=== PATIENT | female | born 1985 | race Caucasian/White ===

== ENCOUNTER 2016-04-30 10:32 | Outpatient (CLI) | payer MEDICAID | END 2016-04-30 10:33 | disposition home or self-care (01) | DX: N64.9 Disorder of breast, unspecified (principal); N63 Unspecified lump in breast ==

== ENCOUNTER 2017-08-03 11:28 | Outpatient (CLI) | payer MEDICAID ==
[2017-08-03 17:49] LABS: BASOPHILS # (AUTO) 0.1 10^3/uL (0.0-0.1); BASOPHILS % (AUTO) 0.7 %; EOSINOPHILS # (AUTO) 0.3 10^3/uL (0.0-0.7); EOSINOPHILS % (AUTO) 3.7 %; HGB - HEMOGLOBIN 12.3 g/dL (12.0-16.0); LYMPHOCYTES # (AUTO) 2.4 10^3/uL (1.5-3.5); LYMPHOCYTES % (AUTO) 29.2 %; MEAN CORPUSCULAR HEMOGLOBIN 29.5 pg (27.0-31.0); MEAN CORPUSCULAR HGB CONC 33.3 g/dL (32.0-36.0); MEAN CORPUSCULAR VOLUME 88.6 fL (81.0-99.0); MEAN PLATELET VOLUME 8.3 fL (7.9-10.8); MONOCYTES # (AUTO) 0.4 10^3/uL (0.0-1.0); NEUTROPHILS % (AUTO) 61.4 %; PLT - PLATELET COUNT 304 10^3/uL (130-450); RED BLOOD COUNT 4.16 10^6/uL (4.20-5.40); RED CELL DISTRIBUTION WIDTH 13.9 % (12.0-15.0); WHITE BLOOD COUNT 8.1 x10^3/uL (4.8-10.8)
[2017-08-03 18:54] LABS: ALBUMIN 4.8 g/dL (3.2-5.5); ALBUMIN/GLOBULIN RATIO 1.4 (1.0-2.2); ALKALINE PHOSPHATASE 49 IU/L (42-121); ALT ALANINE AMINOTRANSFERASE 14 IU/L (10-60); AST ASPARTATE AMINOTRANSFERASE 17 IU/L (10-42); BILIRUBIN,TOTAL 0.7 mg/dL (0.2-1.0); BUN - BLOOD UREA NITROGEN 10 mg/dL (6-20); CALCIUM 9.6 mg/dL (8.5-10.3); CARBON DIOXIDE - CO2 25 mmol/L (21-32); CHLORIDE 103 mmol/L (101-111); CHOL/HDL RATIO 4.1 (<4.4); CHOLESTEROL 227 mg/dL; CREATININE 0.6 mg/dL (0.4-1.0); GFR - MDRD 116 (>89); GLUCOSE 86 mg/dL (70-100); HDL CHOLESTEROL 55 mg/dL; LDL CHOLESTEROL,CALCULATED 160 mg/dL; LDL/HDL RATIO 2.9 (<4.4); SODIUM 136 mmol/L (135-145); TOTAL PROTEIN 8.3 g/dL (6.7-8.2); VLDL CHOLESTEROL 12 mg/dL
== END 2017-08-03 11:29 | disposition home or self-care (01) ==
LOC: LAB.F 11:28
PROVIDERS: ATTEND Physician Assistant Medical
DX: Z00.00 Encounter for general adult medical examination without abnormal findings (principal); Z51.81 Encounter for therapeutic drug level monitoring; Z79.899 Other long term (current) drug therapy
CPT/HCPCS: 36415; 80053; 80061; 83721; 84443; 85025

== ENCOUNTER 2018-01-25 10:11 | Emergency (ER) | payer MEDICAID ==
[2018-01-25 11:02] LABS: BASOPHILS % (AUTO) 0.3 %; HGB - HEMOGLOBIN 12.7 g/dL (12.0-16.0); LYMPHOCYTES # (AUTO) 1.7 10^3/uL (1.5-3.5); LYMPHOCYTES % (AUTO) 13.9 %; MEAN CORPUSCULAR HEMOGLOBIN 30.2 pg (27.0-31.0); MEAN CORPUSCULAR HGB CONC 34.6 g/dL (32.0-36.0); MEAN CORPUSCULAR VOLUME 87.3 fL (81.0-99.0); MEAN PLATELET VOLUME 7.4 fL (7.9-10.8); MONOCYTES # (AUTO) 0.9 10^3/uL (0.0-1.0); MONOCYTES % (AUTO) 7.2 %; NEUTROPHILS # (AUTO) 9.7 10^3/uL (1.5-6.6); NEUTROPHILS % (AUTO) 78.6 %; PLT - PLATELET COUNT 323 10^3/uL (130-450); RED BLOOD COUNT 4.19 10^6/uL (4.20-5.40); RED CELL DISTRIBUTION WIDTH 13.8 % (12.0-15.0); WHITE BLOOD COUNT 12.3 x10^3/uL (4.8-10.8)
[2018-01-25 11:16] LABS: ALBUMIN 5.3 g/dL (3.2-5.5); ALBUMIN/GLOBULIN RATIO 1.4 (1.0-2.2); BILIRUBIN,TOTAL 0.7 mg/dL (0.2-1.0); CALCIUM 9.5 mg/dL (8.5-10.3); CREATININE 0.8 mg/dL (0.4-1.0); TOTAL PROTEIN 9.2 g/dL (6.7-8.2)
[2018-01-25 12:05] LABS: BILIRUBIN,URINE NEGATIVE (NEGATIVE); GLUCOSE, URINE (UA) NEGATIVE (NEGATIVE); KETONES,URINE (UA) NEGATIVE (NEGATIVE); LEUKOCYTE ESTERASE, URINE NEGATIVE (NEGATIVE); NITRITE,URINE NEGATIVE (NEGATIVE); OCCULT BLOOD,URINE MODERATE (NEGATIVE); PROTEIN,URINE 100 mg/dL (NEGATIVE); UROBILINOGEN,URINE 0.2 (NORMAL) E.U./dL (NORMAL)
[2018-01-25] MEDS ORDERED: PANTOPRAZOLE 40 MG VIAL IVP STA (12:07)
[2018-01-25] MEDS ORDERED: ONDANSETRON 4 MG/2 ML VIAL IVP STA (12:07)
[2018-01-25] MEDS ORDERED: SODIUM CHLORIDE 0.9% 1,000 ML IV ONE ×2 (12:07)
[2018-01-25 12:13] LABS: CLARITY,URINE HAZY (CLEAR); HCG UR QUAL NEGATIVE
--- NOTE | 2018-01-25 12:19 | ED Physician Documentation ---
History of Present Illness - Stated complaint Stated Complaint: VOMITTING BLOOD - Chief complaint Chief Complaint: Abd Pain - History obtained from History obtained from: Patient - History of Present Illness Timing: How many days ago (2) Pain level max: 5 Pain level now: 3 Improved by: nothing Worsened by: eating - Additonal information Additional information: Patient is a 33-year-old female who states she has been vomiting for the last 2 days approximately every hour. She does use marijuana daily. Is not on any other medications at home. Has been trying [id number] nausea medications without relief. Saw her PCP who sent her here today for evaluation. She states that she had a small amount of blood in the last couple times she vomited. No history of ulcers. States rarely uses alcohol. Has not had any diarrhea. No fevers. No recent travel. Denies any possibility of . Review of Systems Ten Systems: 10 systems reviewed and negative Constitutional: denies: Fever, Chills Ears: denies: Ear pain Nose: denies: Rhinorrhea / runny nose, Congestion Throat: denies: Sore throat Cardiac: denies: Chest pain / pressure Respiratory: denies: Cough GI: reports: Nausea, Vomiting. 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 - Present Medications Home Medications: Ambulatory Orders Medication Instructions Recorded Confirmed Aripiprazole [Abilify] 0 tab PO DAILY 01/25/18 01/25/18 FLUoxetine [PROzac] 0 tab PO DAILY 01/25/18 01/25/18 Ondansetron Odt [Zofran] 4 mg TL Q6H PRN #10 tablet 01/25/18 Promethazine Supp [Phenergan Supp] 25 mg WA Q6H PRN #10 supp 01/25/18 - Allergies Allergies/Adverse Reactions: Allergies Allergy/AdvReac Type Severity Reaction Status Date / Time No Known Drug Allergies Allergy Verified 01/25/18 10:38 - Living Situation Living Situation: reports: With family Living Arrangement: reports: At home - Social History Does the pt smoke?: No Smoking Status: Never smoker Does the pt drink ETOH?: No Does the pt have substance abuse?: Yes Substance Use and Type: Marijuana - Immunizations Immunizations are current?: Yes - POLST Patient has POLST: No PD ED PE NORMAL - Vitals Vital signs reviewed: Yes - General General: Alert and oriented X 3, No acute distress, Well developed/nourished - HEENT HEENT: PERRL, Other (Dry lips) - Neck Neck: Supple, no meningeal sign - Cardiac Cardiac: RRR, Strong equal pulses - Respiratory Respiratory: No respiratory distress, Clear bilaterally - Abdomen Abdomen: Normal bowel sounds, Soft, Non tender, Non distended - Derm Derm: Warm and dry, No rash - Extremities Extremities: No edema, No calf tenderness / cord - Neuro Neuro: Alert and oriented X 3 - Psych Psych: Normal mood, Normal affect Results - Vitals Vitals: Vital Signs - 24 hr 01/25/18 01/25/18 10:37 15:49 Temperature 36.8 C 36.2 C L Heart Rate 59 L 73 Respiratory 18 20 Rate Blood Pressure 115/75 120/71 O2 Saturation 99 96 Oxygen O2 Source Room air - Labs Labs: Laboratory Tests 01/25/18 01/25/18 01/25/18 10:41 10:55 10:55 WBC 12.3 H RBC 4.19 L Hgb 12.7 Hct 36.6 L MCV 87.3 MCH 30.2 MCHC 34.6 RDW 13.8 Plt Count 323 MPV 7.4 L Neut # (Auto) 9.7 H Lymph # (Auto) 1.7 [place] # (Auto) 0.9 Eos # (Auto) 0.0 Baso # (Auto) 0.0 Absolute Nucleated RBC 0.01 Nucleated RBC % 0.1 Sodium 137 Potassium 2.7 L Chloride 92 L Carbon Dioxide 31 Anion Gap 14.0 H BUN 22 H Creatinine 0.8 Estimated GFR (MDRD) 83 L Glucose 119 H Calcium 9.5 Total Bilirubin 0.7 AST 22 ALT 24 Alkaline Phosphatase 64 Total Protein 9.2 H Albumin 5.3 Globulin 3.8 Albumin/Globulin Ratio 1.4 Lipase 26 Urine Color RED/BLOODY Urine Clarity HAZY Urine pH 7.0 Ur Specific [place] 1.020 Urine Protein 100 H Urine Glucose (UA) NEGATIVE Urine Ketones NEGATIVE Urine Occult Blood MODERATE H Urine Nitrite NEGATIVE Urine Bilirubin NEGATIVE Urine Urobilinogen 0.2 (NORMAL) Ur Leukocyte Esterase NEGATIVE Urine RBC 6-10 H Urine WBC 0-3 Ur Squamous Epith Cells MOD Squamous H Urine Bacteria Moderate H Ur Microscopic Review INDICATED Urine Culture Comments NOT INDICATED Urine HCG, Qual NEGATIVE PD MEDICAL DECISION MAKING - ED course Complexity details: reviewed results, re-evaluated patient, considered differential, d/w patient ED course: Patient is a 33-year-old female who presents to the emergency department vomiting for the past 2 days. She is administered IV fluids, Zofran, phenergan. Feels better. Did have slight hematemesis, likely from the repeated vomiting. Also given IV Protonix. She is well-appearing, nontoxic. Afebrile. We will continue supportive care and follow-up with her doctor. Patient counseled regarding signs and symptoms for which I believe and urgent re-evaluation would be necessary. Patient with good understanding of and agreement to plan and is comfortable going home at this time This document was made in part using voice recognition software. While efforts are made to proofread this document, sound alike and grammatical errors may occur. Departure - Departure Disposition: 01 Home, Self Care Clinical Impression: Vomiting Qualifiers: Vomiting type: unspecified Vomiting Intractability: non-intractable Nausea presence: with nausea Qualified Code(s): R11.2 - Nausea with vomiting, unspecified Hematemesis Qualifiers: Nausea presence: with nausea Qualified Code(s): K92.0 - Hematemesis Condition: Good Instructions: ED Bleed UGI Stable, ED Nausea Vomiting Follow-Up: Marge Dyer PA-C [Primary Care Provider] - Within 1 week Prescriptions: Ondansetron Odt [Zofran] 4 mg TL Q6H PRN #10 tablet PRN Reason: Nausea / Vomiting Promethazine Supp [Phenergan Supp] 25 mg WA Q6H PRN #10 supp PRN Reason: nausea Comments: Go home and rest. Return if you worsen. Drink plenty of fluids at home. Follow up with your doctor within 1 week for further care. Discharge Date/Time: 01/25/18 15:52
[2018-01-25 12:27] LABS: BACTERIA,URINE Moderate /HPF (None Seen); SQUAMOUS EPITHELIAL CELL,UR MOD Squamous (<= Few)
[2018-01-25] MEDS ORDERED: POTASSIUM BICARB 25 MEQ TABLET PO STA (14:05)
[2018-01-25] MEDS ORDERED: PROMETHAZINE INJ 25 MG in SODIUM CHLORIDE 0.9% 50 ML IV STA (14:16)
[2018-01-25 15:50] VITALS: BP 120/71
== END 2018-01-25 15:52 | disposition home or self-care (01) ==
LOC: ED 10:11
DX: K92.0 Hematemesis (principal)
CPT/HCPCS: 36415; 80053; 81001; 81025; 83690; 85025; 96361; 96365; 96375; 99283; A9270; J7040; 81003; 87086

== ENCOUNTER 2018-01-29 08:00 | Outpatient (CLI) | payer MEDICAID ==
[2018-01-29 18:35] LABS: H. PYLORIS ANTIGEN STL NEGATIVE (Negative)
== END 2018-01-29 23:59 | disposition home or self-care (01) ==
LOC: LAB.R 08:00
PROVIDERS: ATTEND Registered Nurse
DX: K92.0 Hematemesis (principal)
CPT/HCPCS: 87338

== ENCOUNTER 2018-07-21 21:48 | Emergency (ER) | payer MEDICAID ==
[2018-07-21] MEDS ORDERED: SODIUM CHLORIDE 0.9% 1,000 ML IV STA (21:56)
[2018-07-21 22:10] LABS: BASOPHILS % (AUTO) 0.3 %; EOSINOPHILS % (AUTO) 0.2 %; HGB - HEMOGLOBIN 12.5 g/dL (12.0-16.0); LYMPHOCYTES # (AUTO) 1.4 10^3/uL (1.5-3.5); MEAN CORPUSCULAR HEMOGLOBIN 29.6 pg (27.0-31.0); MEAN CORPUSCULAR VOLUME 86.9 fL (81.0-99.0); MEAN PLATELET VOLUME 7.5 fL (7.9-10.8); MONOCYTES # (AUTO) 0.4 10^3/uL (0.0-1.0); MONOCYTES % (AUTO) 2.6 %; NEUTROPHILS # (AUTO) 13.6 10^3/uL (1.5-6.6); NEUTROPHILS % (AUTO) 87.9 %; PLT - PLATELET COUNT 331 10^3/uL (130-450); RED BLOOD COUNT 4.23 10^6/uL (4.20-5.40); RED CELL DISTRIBUTION WIDTH 13.6 % (12.0-15.0); WHITE BLOOD COUNT 15.5 x10^3/uL (4.8-10.8)
[2018-07-21] MEDS ORDERED: HYDROmorphone 1 MG/ML CARPUJECT IVP STA (22:10)
[2018-07-21] MEDS ORDERED: KETOROLAC 30 MG/ML VIAL IVP STA (22:10)
[2018-07-21] MEDS ORDERED: PROMETHAZINE INJ 25 MG in SODIUM CHLORIDE 0.9% 50 ML IV STA (22:10)
[2018-07-21 22:21] LABS: ALBUMIN/GLOBULIN RATIO 1.4 (1.0-2.2); BILIRUBIN,TOTAL 0.5 mg/dL (0.2-1.0); CALCIUM 9.8 mg/dL (8.5-10.3); CREATININE 0.7 mg/dL (0.4-1.0); TOTAL PROTEIN 8.6 g/dL (6.7-8.2)
--- NOTE | 2018-07-21 22:47 | ED Physician Documentation ---
History of Present Illness - Stated complaint Stated Complaint: FEMALE - Chief complaint Chief Complaint: Abd Pain - History obtained from History obtained from: Patient - History of Present Illness Timing: Yesterday Pain level max: 10 Pain level now: 10 - Additonal information Additional information: 33-year-old female presents to the emergency department with right flank pain and hematuria. Started yesterday and worsened today. Has had kidney stones in the past, but states that this feels different. No fevers. No dysuria. No vaginal bleeding or discharge. She has had vomiting as well. She states that this is normal when she is in significant pain. Nothing makes it better or worse. Review of Systems Ten Systems: 10 systems reviewed and negative Constitutional: denies: Fever, Chills Ears: denies: Ear pain Nose: denies: Rhinorrhea / runny nose, Congestion Respiratory: denies: Cough : reports: Hematuria. 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 - Present Medications Home Medications: Ambulatory Orders Medication Instructions Recorded Confirmed Aripiprazole [Abilify] 0 tab PO DAILY 01/25/18 01/25/18 FLUoxetine [PROzac] 0 tab PO DAILY 01/25/18 01/25/18 Ondansetron Odt [Zofran] 4 mg TL Q6H PRN #10 tablet 01/25/18 Promethazine Supp [Phenergan Supp] 25 mg NE Q6H PRN #10 supp 01/25/18 Cefdinir 300 mg PO BID #20 capsule 07/22/18 Oxycodone HCl/Acetaminophen 1 - 2 each PO Q6H PRN #14 tablet 07/22/18 [Percocet 5-325 mg Tablet] Promethazine Supp [Phenergan Supp] 25 mg NE Q6HR PRN #10 supp 07/22/18 Promethazine [Phenergan] 25 mg PO Q6H PRN #10 tab 07/22/18 - Allergies Allergies/Adverse Reactions: Allergies Allergy/AdvReac Type Severity Reaction Status Date / Time No Known Drug Allergies Allergy Verified 07/21/18 21:59 - Social History Does the pt smoke?: No Smoking Status: Never smoker Does the pt drink ETOH?: No Does the pt have substance abuse?: No Substance Use and Type: Marijuana - Immunizations Immunizations are current?: Yes - POLST Patient has POLST: No PD ED PE NORMAL - Vitals Vital signs reviewed: Yes - General General: Alert and oriented X 3, No acute distress - HEENT HEENT: Moist mucous membranes - Neck Neck: Supple, no meningeal sign - Cardiac Cardiac: RRR - Respiratory Respiratory: No respiratory distress, Clear bilaterally - Abdomen Abdomen: Soft, Non distended, Other (TTP RLQ without peritoneal signs) - Back Back: No CVA TTP, No spinal TTP - Derm Derm: Warm and dry - Extremities Extremities: No edema - Neuro Neuro: Alert and oriented X 3 - Psych Psych: Normal mood, Normal affect Results - Vitals Vitals: Vital Signs - 24 hr 07/21/18 07/21/18 07/21/18 21:57 22:36 23:59 Temperature 36.4 C L 36.6 C Heart Rate 69 75 Respiratory 18 16 16 Rate Blood Pressure 114/75 112/77 O2 Saturation 100 96 07/22/18 02:04 Temperature 36.4 C L Heart Rate 93 Respiratory 14 Rate Blood Pressure 116/81 H O2 Saturation 96 Oxygen O2 Source Room air - Labs Labs: Laboratory Tests 07/21/18 07/21/18 07/21/18 22:00 22:00 22:40 WBC 15.5 H RBC 4.23 Hgb 12.5 Hct 36.8 L MCV 86.9 MCH 29.6 MCHC 34.0 RDW 13.6 Plt Count 331 MPV 7.5 L Neut # (Auto) 13.6 H Lymph # (Auto) 1.4 L [place] # (Auto) 0.4 Eos # (Auto) 0.0 Baso # (Auto) 0.0 Absolute Nucleated RBC 0.01 Nucleated RBC % 0.1 Sodium 139 Potassium 3.8 Chloride 102 Carbon Dioxide 23 Anion Gap 14.0 H BUN 19 Creatinine 0.7 Estimated GFR (MDRD) 96 Glucose 160 H Calcium 9.8 Total Bilirubin 0.5 AST 18 ALT 23 Alkaline Phosphatase 61 Total Protein 8.6 H Albumin 5.0 Globulin 3.6 Albumin/Globulin Ratio 1.4 Lipase 26 Urine Color BROWN Urine Clarity CLOUDY Urine pH 6.5 Ur Specific [place] >=1.030 H Urine Protein >=300 H Urine Glucose (UA) NEGATIVE Urine Ketones 15 H Urine Occult Blood LARGE H Urine Nitrite POSITIVE H Urine Bilirubin NEGATIVE Urine Urobilinogen 1 (NORMAL) Ur Leukocyte Esterase TRACE H Urine RBC TNTC H Urine WBC 4-5 Ur Squamous Epith Cells NONE SEEN Urine Bacteria Few Ur Microscopic Review INDICATED Urine Culture Comments INDICATED Urine HCG, Qual NEGATIVE - Rads (name of study) CT abd/pelvis Radiology: Prelim report reviewed, EMP read contemporaneously, See rad report (6 x 5 mm stone at the ureteropelvic junction) PD MEDICAL DECISION MAKING - ED course Complexity details: reviewed results, re-evaluated patient, considered differential, d/w patient, d/w family, d/w [employer] consultant (Dr. Hagan ([facility]rology [facility] [place]) and recommends rocephin and close follow up. ) ED course: 33-year-old female with a right sided kidney stone. 6 x 5 mm. Given Dilaudid, Toradol, normal saline and pain much improved. No longer vomiting. Also given Phenergan for the vomiting. Appears to have a UTI with this, given Rocephin. Call placed to urology at 2330. She lives in [place] and prefers [place] to be contacted first. D/w Dr. Hagan 0030, urology, who recommends follow up with him in clinic in 1-[address] on abx. Alternatively can observe here at [facility] for fevers and pain control overnight, repeat WBC in the am and if she worsens then can be transferred. 0130 Pain returning and nausea. D/w Dr. Neil, hospitalist here, who refuses admission here because the patient may get sicker and need transfer anyway. We went over the phone call with urology and offered to him to have him speak with urology himself, but he still refuses this patient. Will recontact [facility] in [place] to see if she can be transferred. Pain was well controlled by . As she is not going to be able to be admitted here, she does not want to be transferred and would like to go home at this time instead. Will prescribe medications for home and follow-up with triny ortiz today or tomorrow. Patient counseled regarding signs and symptoms for which I believe and urgent re-evaluation would be necessary. Patient with good understanding of and agreement to plan and is comfortable going home at this time This document was made in part using voice recognition software. While efforts are made to proofread this document, sound alike and grammatical errors may occur. Departure - Departure Disposition: 01 Home, Self Care Clinical Impression: Ureteral stone UTI (urinary tract infection) Qualifiers: Urinary tract infection type: site unspecified Hematuria presence: with hematuria Qualified Code(s): N39.0 - Urinary tract infection, site not specified Condition: Stable Instructions: ED UTI Cystitis Female, ED Stone Renal W Colic Follow-Up: Mary Hagan MD [Physician No Access] - Tomorrow Prescriptions: Promethazine Supp [Phenergan Supp] 25 mg NE Q6HR PRN #10 supp PRN Reason: vomiting Cefdinir 300 mg PO BID #20 capsule Oxycodone HCl/Acetaminophen [Percocet 5-325 mg Tablet] 1 - 2 each PO Q6H PRN #14 tablet PRN Reason: pain Promethazine [Phenergan] 25 mg PO Q6H PRN #10 tab PRN Reason: Nausea / Vomiting Comments: Use the medications as prescribed. Make sure you start the antibiotics tomorrow morning. Return immediately for uncontrolled pain, persistent vomiting or fevers. Follow-up with urology either tomorrow or the next day. Call the office in the morning. I did speak with Dr. Danya salvador. Do not drink alcohol or drive while on narcotic pain medicine. Note that many narcotic pain relievers also contain tylenol/acetaminophen. Please ensure that your total dose of acetaminophen from all sources does not exceed 3 grams (3000mg) per day. You may constipated on this medication, take a stool softener such as "Colace" twice a day while you are on it. Also recommend a [id number] laxative such as senna or MiraLAX any day that you do not have a bowel movement. If you received narcotic pain medication in the emergency department, do not drive or operate machinery for the next 24 hours. Discharge Date/Time: 07/22/18 02:46
[2018-07-21 22:48] LABS: GLUCOSE, URINE (UA) NEGATIVE (NEGATIVE); KETONES,URINE (UA) 15 mg/dL (NEGATIVE); LEUKOCYTE ESTERASE, URINE TRACE (NEGATIVE); NITRITE,URINE POSITIVE (NEGATIVE); OCCULT BLOOD,URINE LARGE (NEGATIVE); PH,URINE 6.5 PH (5.0-7.5); PROTEIN,URINE >=300 mg/dL (NEGATIVE); UROBILINOGEN,URINE 1 (NORMAL) E.U./dL (NORMAL)
[2018-07-21 22:53] LABS: BILIRUBIN,URINE NEGATIVE (NEGATIVE); CLARITY,URINE CLOUDY (CLEAR); HCG UR QUAL NEGATIVE; ICTOTEST,URINE NEGATIVE
[2018-07-21 22:56] LABS: BACTERIA,URINE Few /HPF (None Seen); RBC,URINE TNTC /HPF (0-5); SQUAMOUS EPITHELIAL CELL,UR NONE SEEN (<= Few)
[2018-07-21] MEDS ORDERED: cefTRIAXone 1 GM VIAL IVP STA (23:15)
--- NOTE | 2018-07-21 23:26 | CT Report ---
Reason: R flank pain, hematuria Procedure Date: 07/21/2018 Accession Number: [id number] / [id number] Procedure: CT - Abdomen/Pelvis WO CPT Code: FULL RESULT: EXAM: CT ABDOMEN AND PELVIS (CT KUB) EXAM DATE: 07/21/2018 11:10 PM. CLINICAL HISTORY: R flank pain, hematuria. COMPARISONS: ABD/PEL 05/14/2010 2:31 AM. TECHNIQUE: Routine axial helical CT imaging was performed through the abdomen and pelvis without IV contrast. Reconstructions: Coronal and sagittal. In accordance with CT protocol optimization, one or more of the following dose reduction techniques were utilized for this exam: automated exposure control, adjustment of mA and/or KV based on patient size, or use of iterative reconstructive technique. FINDINGS: Lung Bases: No focal consolidation. Small hiatal hernia. Right Kidney/Ureter: At least one nonobstructing stone is seen in the kidney measuring 3 mm. Moderately obstructing stone at the ureteropelvic junction measuring 6 x 5 mm. Cyst measuring 1.6 cm. Left Kidney/Ureter: Nonobstructing renal stone measuring 4 x 3 mm. Cyst measuring 2.1 cm. No ureteral stone or obstructive uropathy seen. Other Solid Organs: Noncontrast images of the solid organs are grossly unremarkable. Gallbladder/Bile Ducts: Unremarkable. Peritoneal Cavity: No bowel obstruction seen. No free air or free fluid. No diverticulitis. No lymphadenopathy. Appendix appears normal. Pelvic Organs: No bladder stones or wall thickening. Noncontrast images of the visualized pelvic organs are unremarkable. Vasculature: Unremarkable. Other: None. IMPRESSION: 1. Moderately obstructing 6 x 5 mm stone at the right ureteropelvic junction. 2. Small nonobstructing stone in each kidney. 3. Small hiatal hernia. RADIA
[2018-07-22] MEDS ORDERED: ONDANSETRON 4 MG/2 ML VIAL IVP STA (00:37)
[2018-07-22] MEDS ORDERED: PROMETHAZINE INJ 25 MG in SODIUM CHLORIDE 0.9% 50 ML IV STA (01:00)
[2018-07-22] MEDS ORDERED: HYDROmorphone 1 MG/ML CARPUJECT IVP STA (01:25)
[2018-07-22] MEDS ORDERED: LIDOCAINE-MPF 2% 7 ML in SODIUM CHLORIDE 0.9% 50 ML IV STA (01:25)
[2018-07-22 02:05] VITALS: BP 116/81
[2018-07-22] MEDS ORDERED: oxyCODONE/ACET 5/325 Prepack 4 PO STA (02:28)
== END 2018-07-22 02:46 | disposition home or self-care (01) ==
LOC: ED 21:48
DX: N20.1 Calculus of ureter (principal); N39.0 Urinary tract infection, site not specified
CPT/HCPCS: 36415; 74176; 80053; 81001; 81025; 83690; 85025; 87086; 96361; 96365; 96375; 96376; 99284; J1170; J7040; 81003

== ENCOUNTER 2018-11-28 14:11 | Emergency (ER) | payer MEDICAID ==
[2018-11-28] MEDS ORDERED: SODIUM CHLORIDE 0.9% 1,000 ML IV ONE ×2 (14:19→16:17)
[2018-11-28] MEDS ORDERED: LIDOCAINE-MPF 2% 7 ML in SODIUM CHLORIDE 0.9% 50 ML IV STA (14:24)
[2018-11-28] MEDS ORDERED: HYDROmorphone 1 MG/ML CARPUJECT IVP STA (14:24)
[2018-11-28] MEDS ORDERED: KETOROLAC 30 MG/ML VIAL IVP STA (14:24)
--- NOTE | 2018-11-28 14:27 | ED Physician Documentation ---
History of Present Illness - Stated complaint Stated Complaint: N/V DIZZY TINGELING HANDS & FEET - Chief complaint Chief Complaint: Abd Pain - History obtained from History obtained from: Patient, Family - History of Present Illness Timing: How many days ago (3) Pain level max: 10 Pain level now: 10 Improved by: nothing Worsened by: nothing - Additonal information Additional information: Patient with a long history of ureteral stones. States she started having pain and vomiting on Thursday. Was seen at [facility] in [place] and diagnosed with 2 kidney stones. She states that she passed one. She states that there is still a 3 mm ure[address] stone in place. Pain increasing today. Vomiting today so unable to tolerate her pain medication. She took Zofran and Phenergan without relief. She sees urology at [facility]. Review of Systems Ten Systems: 10 systems reviewed and negative Constitutional: denies: Fever, Chills Nose: denies: Rhinorrhea / runny nose, Congestion Respiratory: denies: Cough GI: reports: Vomiting. 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 - Present Medications Home Medications: Ambulatory Orders Medication Instructions Recorded Confirmed Aripiprazole [Abilify] 0 tab PO DAILY 01/25/18 01/25/18 FLUoxetine [PROzac] 0 tab PO DAILY 01/25/18 01/25/18 Ondansetron Odt [Zofran] 4 mg TL Q6H PRN #10 tablet 01/25/18 Cefdinir 300 mg PO BID #20 capsule 07/22/18 Oxycodone HCl/Acetaminophen 1 - 2 each PO Q6H PRN #14 tablet 07/22/18 [Percocet 5-325 mg Tablet] Cephalexin [Keflex] 11/28/18 Tamsulosin HCl [Flomax] 11/28/18 - Allergies Allergies/Adverse Reactions: Allergies Allergy/AdvReac Type Severity Reaction Status Date / Time No Known Drug Allergies Allergy Verified 07/21/18 21:59 - Social History Does the pt smoke?: No Smoking Status: Never smoker Does the pt drink ETOH?: No Does the pt have substance abuse?: No - Immunizations Immunizations are current?: Yes - POLST Patient has POLST: No PD ED PE NORMAL - Vitals Vital signs reviewed: Yes - General General: Alert and oriented X 3, No acute distress, Well developed/nourished - HEENT HEENT: PERRL - Neck Neck: Supple, no meningeal sign - Cardiac Cardiac: RRR - Respiratory Respiratory: No respiratory distress, Clear bilaterally - Abdomen Abdomen: Soft, Non tender, Non distended - Back Back: No CVA TTP - Derm Derm: Warm and dry - Extremities Extremities: No edema - Neuro Neuro: Alert and oriented X 3 - Psych Psych: Normal mood, Normal affect Results - Vitals Vitals: Vital Signs - 24 hr 11/28/18 11/28/18 11/28/18 14:16 14:46 15:45 Temperature 36.9 C Heart Rate 97 85 74 Respiratory 18 18 18 Rate Blood Pressure 123/92 H 121/70 98/85 H O2 Saturation 100 96 96 11/28/18 11/28/18 11/28/18 16:03 16:10 16:12 Temperature 37.4 C Heart Rate 83 Respiratory 16 Rate Blood Pressure 105/82 H O2 Saturation 95 85 L 95 11/28/18 11/28/18 11/28/18 16:26 17:00 17:28 Temperature 36.8 C Heart Rate 64 62 74 Respiratory 18 18 20 Rate Blood Pressure 105/82 H 112/67 114/81 H O2 Saturation 96 97 98 11/28/18 11/28/18 11/28/18 17:48 18:16 19:00 Temperature 38.0 C H Heart Rate 81 73 77 Respiratory 20 18 18 Rate Blood Pressure 132/81 H 124/86 H 110/66 O2 Saturation 99 2 L 95 11/28/18 11/28/18 21:05 21:37 Temperature Heart Rate 71 100 Respiratory 17 17 Rate Blood Pressure 101/69 122/64 O2 Saturation 99 100 Oxygen O2 Source Room air - Labs Labs: Laboratory Tests 11/28/18 11/28/18 11/28/18 14:27 14:27 15:30 WBC 15.6 H RBC 4.53 Hgb 13.1 Hct 40.0 MCV 88.3 MCH 28.9 MCHC 32.8 RDW 13.2 Plt Count 351 MPV 9.4 Neut # (Auto) 12.7 H Lymph # (Auto) 1.7 Clay # (Auto) 1.0 Eos # (Auto) 0.0 Baso # (Auto) 0.0 Absolute Nucleated RBC 0.00 Nucleated RBC % 0.0 Sodium 138 Potassium 2.6 L Chloride 88 L Carbon Dioxide 32 Anion Gap 18.0 H BUN 19 Creatinine 0.8 Estimated GFR (MDRD) 83 L Glucose 129 H Lactic Acid Calcium 9.6 Total Bilirubin 0.8 AST 22 ALT 19 Alkaline Phosphatase 65 Total Protein 9.7 H Albumin 5.1 Globulin 4.6 H Albumin/Globulin Ratio 1.1 Lipase 36 Urine Color YELLOW Urine Clarity HAZY Urine pH 8.5 H Ur Specific [place] 1.015 Urine Protein >=300 H Urine Glucose (UA) NEGATIVE Urine Ketones 15 H Urine Occult Blood MODERATE H Urine Nitrite NEGATIVE Urine Bilirubin NEGATIVE Urine Urobilinogen 1 (NORMAL) Ur Leukocyte Esterase TRACE H Urine RBC 11-25 H Urine WBC 6-10 H Ur Squamous Epith Cells MANY Squamous H Urine Bacteria Many H Urine Mucus Marked Strands Ur Microscopic Review INDICATED Urine Culture Comments NOT INDICATED Urine Opiates Screen Ur Oxycodone Screen Urine Methadone Screen Ur Propoxyphene Screen Ur Barbiturates Screen Ur Tricyclics Screen Ur Phencyclidine Scrn Ur Amphetamine Screen U Methamphetamines Scrn U Benzodiazepines Scrn Urine Cocaine Screen U Cannabinoids Screen 11/28/18 11/28/18 11/28/18 17:40 17:40 19:40 WBC RBC Hgb Hct MCV MCH MCHC RDW Plt Count MPV Neut # (Auto) Lymph # (Auto) Clay # (Auto) Eos # (Auto) Baso # (Auto) Absolute Nucleated RBC Nucleated RBC % Sodium Potassium Chloride Carbon Dioxide Anion Gap BUN Creatinine Estimated GFR (MDRD) Glucose Lactic Acid 0.8 Calcium Total Bilirubin AST ALT Alkaline Phosphatase Total Protein Albumin Globulin Albumin/Globulin Ratio Lipase Urine Color YELLOW Urine Clarity CLEAR Urine pH >=9.0 H Ur Specific [place] 1.010 Urine Protein 100 H Urine Glucose (UA) NEGATIVE Urine Ketones 40 H Urine Occult Blood MODERATE H Urine Nitrite NEGATIVE Urine Bilirubin NEGATIVE Urine Urobilinogen 1 (NORMAL) Ur Leukocyte Esterase TRACE H Urine RBC TNTC H Urine WBC 6-10 H Ur Squamous Epith Cells FEW Squamous Urine Bacteria Moderate H Urine Mucus Ur Microscopic Review INDICATED Urine Culture Comments INDICATED Urine Opiates Screen POSITIVE H Ur Oxycodone Screen NEGATIVE Urine Methadone Screen NEGATIVE Ur Propoxyphene Screen POSITIVE H Ur Barbiturates Screen NEGATIVE Ur Tricyclics Screen NEGATIVE Ur Phencyclidine Scrn NEGATIVE Ur Amphetamine Screen NEGATIVE U Methamphetamines Scrn NEGATIVE U Benzodiazepines Scrn NEGATIVE Urine Cocaine Screen NEGATIVE U Cannabinoids Screen POSITIVE H PD MEDICAL DECISION MAKING - ED course Complexity details: reviewed old records, reviewed results, re-evaluated patient, considered differential, d/w patient, d/w family, d/w consultant rn ED course: Reviewed to the [facility] emergency department notes from 11/26/2018. She has a 3 mm left proximal ureteral stone. Her urinalysis appeared likely contaminated but was not recollected. She was started on Keflex. She was also placed on Flomax, oxycodone, Zofran and ibuprofen. Patient is followed by Dr. Villa, urologist at the [facility]. Patient has a fever here. Increasing leukocytosis. Significant hypokalemia and vomiting. Did not get better with Zofran and Phenergan. Given IV fluids. Given Rocephin. Normal lactate. Blood cultures drawn. Vomiting significantly improved with haloperidol. Given her worsening symptoms, will transfer to [facility], Dr. Simon (urology) graciously accepts in transfer at 2019. COBRA forms completed This document was made in part using voice recognition software. While efforts are made to proofread this document, sound alike and grammatical errors may occu r. Departure - Departure Disposition: 02 Transfer Acute Care Hosp Clinical Impression: Ureteral stone, Hypokalemia Fever Qualifiers: Fever type: unspecified Qualified Code(s): R50.9 - Fever, unspecified Vomiting Qualifiers: Vomiting type: unspecified Vomiting Intractability: non-intractable Nausea presence: with nausea Qualified Code(s): R11.2 - Nausea with vomiting, unspecified UTI (urinary tract infection) Qualifiers: Urinary tract infection type: acute cystitis Hematuria presence: without hematuria Qualified Code(s): N30.00 - Acute cystitis without hematuria Condition: Stable Discharge Date/Time: 11/28/18 22:04
[2018-11-28 14:29] LABS: BASOPHILS % (AUTO) 0.3 %; EOSINOPHILS % (AUTO) 0.1 %; HGB - HEMOGLOBIN 13.1 g/dL (12.0-16.0); LYMPHOCYTES # (AUTO) 1.7 10^3/uL (1.5-3.5); LYMPHOCYTES % (AUTO) 11.1 %; MEAN CORPUSCULAR HEMOGLOBIN 28.9 pg (27.0-31.0); MEAN CORPUSCULAR HGB CONC 32.8 g/dL (32.0-36.0); MEAN CORPUSCULAR VOLUME 88.3 fL (81.0-99.0); MEAN PLATELET VOLUME 9.4 fL (7.9-10.8); MONOCYTES % (AUTO) 6.3 %; NEUTROPHILS # (AUTO) 12.7 10^3/uL (1.5-6.6); NEUTROPHILS % (AUTO) 81.6 %; PLT - PLATELET COUNT 351 10^3/uL (130-450); RED BLOOD COUNT 4.53 10^6/uL (4.20-5.40); RED CELL DISTRIBUTION WIDTH 13.2 % (12.0-15.0); WHITE BLOOD COUNT 15.6 x10^3/uL (4.8-10.8)
[2018-11-28 14:42] LABS: ALBUMIN 5.1 g/dL (3.2-5.5); ALBUMIN/GLOBULIN RATIO 1.1 (1.0-2.2); BILIRUBIN,TOTAL 0.8 mg/dL (0.2-1.0); CALCIUM 9.6 mg/dL (8.5-10.3); CREATININE 0.8 mg/dL (0.4-1.0); TOTAL PROTEIN 9.7 g/dL (6.7-8.2)
[2018-11-28] MEDS ORDERED: POTASSIUM CHLORIDE 20 MEQ TABLET PO STA (15:08)
[2018-11-28] MEDS ORDERED: POTASSIUM CHLOR 10 MEQ/100 ML 10 MEQ/100 ML BAG IV ONE ×2 (15:08→18:49)
[2018-11-28] MEDS ORDERED: PROMETHAZINE INJ 25 MG in SODIUM CHLORIDE 0.9% 50 ML IV STA (15:08)
[2018-11-28] MEDS: SODIUM CHLORIDE 0.9% 1,000 ML IV ONE ×2 (15:34→16:55)
[2018-11-28 15:39] LABS: GLUCOSE, URINE (UA) NEGATIVE (NEGATIVE); KETONES,URINE (UA) 15 mg/dL (NEGATIVE); LEUKOCYTE ESTERASE, URINE TRACE (NEGATIVE); NITRITE,URINE NEGATIVE (NEGATIVE); OCCULT BLOOD,URINE MODERATE (NEGATIVE); PH,URINE 8.5 PH (5.0-7.5); PROTEIN,URINE >=300 mg/dL (NEGATIVE); UROBILINOGEN,URINE 1 (NORMAL) E.U./dL (NORMAL)
[2018-11-28 15:42] LABS: BILIRUBIN,URINE NEGATIVE (NEGATIVE); CLARITY,URINE HAZY (CLEAR); ICTOTEST,URINE NEGATIVE
[2018-11-28 15:54] LABS: BACTERIA,URINE Many /HPF (None Seen); MUCUS,URINE Marked Strands; SQUAMOUS EPITHELIAL CELL,UR MANY Squamous (<= Few)
[2018-11-28] MEDS ORDERED: ONDANSETRON 4 MG/2 ML VIAL IVP STA (16:17)
[2018-11-28] MEDS ORDERED: HALOPERIDOL 5 MG/ML VIAL IVP STA ×2 (17:46→21:53)
[2018-11-28 18:01] LABS: MUDS CUTOFF CONCENTRATIONS CUTOFF CONC BELOW:
[2018-11-28 18:08] LABS: GLUCOSE, URINE (UA) NEGATIVE (NEGATIVE); KETONES,URINE (UA) 40 mg/dL (NEGATIVE); LEUKOCYTE ESTERASE, URINE TRACE (NEGATIVE); NITRITE,URINE NEGATIVE (NEGATIVE); OCCULT BLOOD,URINE MODERATE (NEGATIVE); PH,URINE >=9.0 PH (5.0-7.5); PROTEIN,URINE 100 mg/dL (NEGATIVE); UROBILINOGEN,URINE 1 (NORMAL) E.U./dL (NORMAL)
[2018-11-28 18:11] LABS: BILIRUBIN,URINE NEGATIVE (NEGATIVE); CLARITY,URINE CLEAR (CLEAR); ICTOTEST,URINE NEGATIVE
[2018-11-28 18:15] LABS: AMPHETAMINE SCREEN,URINE NEGATIVE (NEGATIVE); BENZODIAZEPINES SCREEN, URINE NEGATIVE (NEGATIVE); COCAINE SCREEN URINE NEGATIVE (NEGATIVE); METHADONE SCREEN, URINE NEGATIVE (NEGATIVE); METHAMPHETAMINES SCREEN, URINE NEGATIVE (NEGATIVE); OPIATE SCREEN, URINE POSITIVE (NEGATIVE); OXYCODONE SCREEN, URINE NEGATIVE (NEGATIVE); PROPOXYPHENE SCREEN, URINE POSITIVE (NEGATIVE); TRICYCLIC ANTIDEPRESSANT,URINE NEGATIVE (NEGATIVE)
[2018-11-28 18:23] LABS: BACTERIA,URINE Moderate /HPF (None Seen); RBC,URINE TNTC /HPF (0-5); SQUAMOUS EPITHELIAL CELL,UR FEW Squamous (<= Few)
[2018-11-28] MEDS ORDERED: cefTRIAXone 1 GM VIAL IVP STA (19:06)
[2018-11-28 21:37] VITALS: BP 122/64
== END 2018-11-28 22:04 | disposition short-term general hospital (02) ==
LOC: ED 14:11
DX: N20.1 Calculus of ureter (principal); N30.00 Acute cystitis without hematuria; E87.6 Hypokalemia; R50.9 Fever, unspecified; R11.2 Nausea with vomiting, unspecified; Z87.442 Personal history of urinary calculi
CPT/HCPCS: 36415; 51701; 80053; 80306; 81001; 83605; 83690; 85025; 87040; 87077; 87086; 96361; 96365; 96366; 96367; 96368; 96375; 96376; 99284; 99285; A9270; J1170; J7040; 81003; 81599

== ENCOUNTER 2018-12-10 08:00 | Outpatient (CLI) | payer MEDICAID ==
[2018-12-10 13:06] LABS: ALBUMIN 4.3 g/dL (3.2-5.5); ALBUMIN/GLOBULIN RATIO 1.4 (1.0-2.2); ALKALINE PHOSPHATASE 51 IU/L (42-121); ALT ALANINE AMINOTRANSFERASE 24 IU/L (10-60); AST ASPARTATE AMINOTRANSFERASE 17 IU/L (10-42); BILIRUBIN,TOTAL 0.5 mg/dL (0.2-1.0); BUN - BLOOD UREA NITROGEN 14 mg/dL (6-20); CALCIUM 9.7 mg/dL (8.5-10.3); CARBON DIOXIDE - CO2 26 mmol/L (21-32); CHLORIDE 98 mmol/L (101-111); CK- CREATINE KINASE 51 IU/L (22-269); CREATININE 0.6 mg/dL (0.4-1.0); GFR - MDRD 115 (>89); GLUCOSE 91 mg/dL (70-100); SODIUM 138 mmol/L (135-145); TOTAL PROTEIN 7.4 g/dL (6.7-8.2)
[2018-12-10 14:00] LABS: CRP - C-REACTIVE PROTEIN < 1.0 mg/dL (0-1.0)
[2018-12-10 14:06] LABS: BASOPHILS % (AUTO) 0.2 %; EOSINOPHILS # (AUTO) 0.1 10^3/uL (0.0-0.7); EOSINOPHILS % (AUTO) 0.6 %; HGB - HEMOGLOBIN 11.3 g/dL (12.0-16.0); LYMPHOCYTES # (AUTO) 1.4 10^3/uL (1.5-3.5); LYMPHOCYTES % (AUTO) 8.5 %; MEAN CORPUSCULAR HEMOGLOBIN 29.1 pg (27.0-31.0); MEAN CORPUSCULAR HGB CONC 32.8 g/dL (32.0-36.0); MEAN CORPUSCULAR VOLUME 88.7 fL (81.0-99.0); MEAN PLATELET VOLUME 10.2 fL (7.9-10.8); MONOCYTES # (AUTO) 1.1 10^3/uL (0.0-1.0); MONOCYTES % (AUTO) 6.6 %; NEUTROPHILS # (AUTO) 13.3 10^3/uL (1.5-6.6); NEUTROPHILS % (AUTO) 83.3 %; PLT - PLATELET COUNT 305 10^3/uL (130-450); RED BLOOD COUNT 3.88 10^6/uL (4.20-5.40); RED CELL DISTRIBUTION WIDTH 14.1 % (12.0-15.0)
== END 2018-12-10 08:01 | disposition home or self-care (01) ==
LOC: LAB.R 08:00
PROVIDERS: ATTEND Internal Medicine Infectious Disease
DX: N34.0 Urethral abscess (principal); B95.2 Enterococcus as the cause of diseases classified elsewhere
CPT/HCPCS: 80053; 82550; 85025; 85651; 86140

== ENCOUNTER 2018-12-17 08:00 | Outpatient (CLI) | payer MEDICAID ==
[2018-12-17 12:24] LABS: BASOPHILS # (AUTO) 0.1 10^3/uL (0.0-0.1); BASOPHILS % (AUTO) 0.6 %; EOSINOPHILS # (AUTO) 0.3 10^3/uL (0.0-0.7); EOSINOPHILS % (AUTO) 3.2 %; HGB - HEMOGLOBIN 10.7 g/dL (12.0-16.0); LYMPHOCYTES % (AUTO) 24.7 %; MEAN CORPUSCULAR HEMOGLOBIN 28.8 pg (27.0-31.0); MEAN CORPUSCULAR HGB CONC 31.7 g/dL (32.0-36.0); MEAN CORPUSCULAR VOLUME 90.9 fL (81.0-99.0); MEAN PLATELET VOLUME 9.7 fL (7.9-10.8); MONOCYTES # (AUTO) 0.4 10^3/uL (0.0-1.0); NEUTROPHILS # (AUTO) 5.3 10^3/uL (1.5-6.6); PLT - PLATELET COUNT 335 10^3/uL (130-450); RED BLOOD COUNT 3.72 10^6/uL (4.20-5.40); RED CELL DISTRIBUTION WIDTH 14.1 % (12.0-15.0)
[2018-12-17 12:39] LABS: ALBUMIN 4.2 g/dL (3.2-5.5); ALBUMIN/GLOBULIN RATIO 1.3 (1.0-2.2); ALKALINE PHOSPHATASE 60 IU/L (42-121); ALT ALANINE AMINOTRANSFERASE 22 IU/L (10-60); AST ASPARTATE AMINOTRANSFERASE 16 IU/L (10-42); BILIRUBIN,TOTAL 0.4 mg/dL (0.2-1.0); BUN - BLOOD UREA NITROGEN 11 mg/dL (6-20); CALCIUM 9.6 mg/dL (8.5-10.3); CARBON DIOXIDE - CO2 23 mmol/L (21-32); CHLORIDE 103 mmol/L (101-111); CK- CREATINE KINASE 88 IU/L (22-269); CREATININE 0.5 mg/dL (0.4-1.0); GFR - MDRD 142 (>89); GLUCOSE 92 mg/dL (70-100); SODIUM 137 mmol/L (135-145); TOTAL PROTEIN 7.4 g/dL (6.7-8.2)
[2018-12-17 12:42] LABS: CRP - C-REACTIVE PROTEIN < 1.0 mg/dL (0-1.0)
== END 2018-12-17 23:59 | disposition home or self-care (01) ==
LOC: LAB.R 08:00
PROVIDERS: ATTEND Internal Medicine Infectious Disease
DX: N34.0 Urethral abscess (principal); B95.2 Enterococcus as the cause of diseases classified elsewhere
CPT/HCPCS: 80053; 82550; 85025; 85651; 86140

== ENCOUNTER 2018-12-23 17:30 | Outpatient (CLI) | payer MEDICAID ==
[2018-12-23 19:17] LABS: BASOPHILS % (AUTO) 0.5 %; EOSINOPHILS % (AUTO) 8.3 %; HGB - HEMOGLOBIN 11.3 g/dL (12.0-16.0); LYMPHOCYTES % (AUTO) 16.4 %; MEAN CORPUSCULAR HEMOGLOBIN 30.1 pg (27.0-31.0); MEAN CORPUSCULAR HGB CONC 33.3 g/dL (32.0-36.0); MEAN CORPUSCULAR VOLUME 90.2 fL (81.0-99.0); MEAN PLATELET VOLUME 9.7 fL (7.9-10.8); MONOCYTES % (AUTO) 6.2 %; PLT - PLATELET COUNT 343 10^3/uL (130-450); RED BLOOD COUNT 3.76 10^6/uL (4.20-5.40); RED CELL DISTRIBUTION WIDTH 14.1 % (12.0-15.0); WHITE BLOOD COUNT 12.5 x10^3/uL (4.8-10.8)
[2018-12-23 19:30] LABS: ALBUMIN 4.3 g/dL (3.2-5.5); ALBUMIN/GLOBULIN RATIO 1.3 (1.0-2.2); BILIRUBIN,TOTAL 0.6 mg/dL (0.2-1.0); CALCIUM 9.8 mg/dL (8.5-10.3); CREATININE 0.6 mg/dL (0.4-1.0); CRP - C-REACTIVE PROTEIN 1.8 mg/dL (0-1.0); TOTAL PROTEIN 7.6 g/dL (6.7-8.2)
[2018-12-23 19:41] LABS: ABNORMAL LYMPHS % (MANUAL) 0 %; BAND NEUTROPHILS % (MANUAL) 0 %; EOSINOPHILS # (MANUAL) 1.1 10^3/uL (0-0.7); LYMPHOCYTES # (MANUAL) 3.8 10^3/uL (1.5-3.5); LYMPHOCYTES % (MANUAL) 24 %; MONOCYTES # (MANUAL) 0.4 10^3/uL (0.0-1.0)
[2018-12-23 19:42] LABS: DIFFERENTIAL COMMENT MANUAL DIFFERENTIAL; PLATELET ESTIMATE, MANUAL NORMAL (130-450,000) (NORMAL); PLATELET MORPHOLOGY NORMAL APPEARANCE (NORMAL); RBC MORPHOLOGY (MULTIPLE) NORMAL APPEARANCE (NORMAL)
== END 2018-12-23 23:59 | disposition home or self-care (01) ==
LOC: LAB.R 17:30
PROVIDERS: ATTEND Internal Medicine Infectious Disease
DX: N34.0 Urethral abscess (principal); N39.0 Urinary tract infection, site not specified; B95.2 Enterococcus as the cause of diseases classified elsewhere
CPT/HCPCS: 80053; 82550; 85025; 85651; 86140

== ENCOUNTER 2019-01-06 10:01 | Outpatient (CLI) | payer MEDICAID ==
[2019-01-06 17:25] LABS: BASOPHILS # (AUTO) 0.1 10^3/uL (0.0-0.1); BASOPHILS % (AUTO) 0.7 %; EOSINOPHILS # (AUTO) 0.2 10^3/uL (0.0-0.7); EOSINOPHILS % (AUTO) 2.3 %; HGB - HEMOGLOBIN 11.1 g/dL (12.0-16.0); LYMPHOCYTES % (AUTO) 23.4 %; MEAN CORPUSCULAR HEMOGLOBIN 29.8 pg (27.0-31.0); MONOCYTES # (AUTO) 0.5 10^3/uL (0.0-1.0); NEUTROPHILS # (AUTO) 5.6 10^3/uL (1.5-6.6); NEUTROPHILS % (AUTO) 66.7 %; PLT - PLATELET COUNT 360 10^3/uL (130-450); RED BLOOD COUNT 3.73 10^6/uL (4.20-5.40); RED CELL DISTRIBUTION WIDTH 14.7 % (12.0-15.0); WHITE BLOOD COUNT 8.4 x10^3/uL (4.8-10.8)
== END 2019-01-06 10:02 | disposition home or self-care (01) ==
LOC: LAB.S 10:01
PROVIDERS: ATTEND Internal Medicine Infectious Disease
DX: N15.1 Renal and perinephric abscess (principal)
CPT/HCPCS: 36415; 85025; 85651; 86141

== ENCOUNTER 2019-01-19 11:59 | Outpatient (CLI) | payer MEDICAID ==
[2019-01-19 17:14] LABS: BASOPHILS % (AUTO) 0.5 %; EOSINOPHILS # (AUTO) 0.4 10^3/uL (0.0-0.7); HGB - HEMOGLOBIN 11.5 g/dL (12.0-16.0); LYMPHOCYTES % (AUTO) 33.7 %; MEAN CORPUSCULAR HEMOGLOBIN 28.5 pg (27.0-31.0); MEAN CORPUSCULAR HGB CONC 31.1 g/dL (32.0-36.0); MEAN CORPUSCULAR VOLUME 91.8 fL (81.0-99.0); MEAN PLATELET VOLUME 10.3 fL (7.9-10.8); MONOCYTES # (AUTO) 0.4 10^3/uL (0.0-1.0); NEUTROPHILS # (AUTO) 3.2 10^3/uL (1.5-6.6); NEUTROPHILS % (AUTO) 53.3 %; PLT - PLATELET COUNT 344 10^3/uL (130-450); RED BLOOD COUNT 4.03 10^6/uL (4.20-5.40); RED CELL DISTRIBUTION WIDTH 14.6 % (12.0-15.0)
== END 2019-01-19 12:00 | disposition home or self-care (01) ==
LOC: LAB.S 11:59
PROVIDERS: ATTEND Physician Assistant Medical
DX: N15.1 Renal and perinephric abscess (principal); M54.5 Low back pain
CPT/HCPCS: 36415; 85025; 85651; 86140

== ENCOUNTER 2019-01-20 09:37 | Outpatient (CLI) | payer MEDICAID | END 2019-01-20 23:59 | disposition home or self-care (01) | LOC: LAB.S 09:37 | PROVIDERS: ATTEND Physician Assistant Medical | DX: N15.1 Renal and perinephric abscess (principal); M54.5 Low back pain | CPT/HCPCS: 86140 ==

== ENCOUNTER 2019-02-25 08:45 | Outpatient (CLI) | payer MEDICAID ==
[2019-02-25 17:44] LABS: ALBUMIN 4.4 g/dL (3.2-5.5); CALCIUM 9.3 mg/dL (8.5-10.3); CREATININE 0.5 mg/dL (0.4-1.0); CRP - C-REACTIVE PROTEIN 1.2 mg/dL (0-1.0); PHOSPHORUS 2.5 mg/dL (2.5-4.6)
[2019-02-25 19:23] LABS: RHEUMATOID FACTOR NEGATIVE (Negative)
[2019-03-01 10:40] LABS: ANA SCREEN NEGATIVE (NEGATIVE)
== END 2019-02-25 08:46 | disposition home or self-care (01) ==
LOC: LAB.S 08:45
PROVIDERS: ATTEND Registered Nurse
DX: M25.50 Pain in unspecified joint (principal); R82.994 Hypercalciuria
CPT/HCPCS: 36415; 80069; 83735; 86038; 86140; 86200; 86430

== ENCOUNTER 2019-06-06 15:55 | Emergency (ER) | payer MEDICAID ==
[2019-06-06] MEDS ORDERED: SODIUM CHLORIDE 0.9% 2,000 ML IV ONE (16:12)
[2019-06-06 16:13] LABS: GLUCOSE, URINE (UA) NEGATIVE (NEGATIVE); KETONES,URINE (UA) NEGATIVE (NEGATIVE); LEUKOCYTE ESTERASE, URINE NEGATIVE (NEGATIVE); NITRITE,URINE NEGATIVE (NEGATIVE); OCCULT BLOOD,URINE LARGE (NEGATIVE); PH,URINE 5.5 PH (5.0-7.5); PROTEIN,URINE >=300 mg/dL (NEGATIVE); UROBILINOGEN,URINE 0.2 (NORMAL) E.U./dL (NORMAL)
[2019-06-06 16:18] LABS: BILIRUBIN,URINE NEGATIVE (NEGATIVE); CLARITY,URINE HAZY (CLEAR); ICTOTEST,URINE NEGATIVE
--- NOTE | 2019-06-06 16:21 | ED Physician Documentation ---
History of Present Illness - Stated complaint Stated Complaint: VOMITING, FEVER - Chief complaint Chief Complaint: Abd Pain - History obtained from History obtained from: Patient - History of Present Illness Timing: How many days ago (2) Pain level max: 4 Pain level now: 3 - Additonal information Additional information: 34-year-old female presents to the emergency department stating she has had vomiting for the past 2 days. Unable to keep anything down. Took Zofran, Phenergan, Compazine and scopolamine prior to arrival. She contacted her doctor and was told to come here for rehydration and to have her electrolytes checked. She states that her abdomen is sore from vomiting. Denies any urinary issues. No vaginal bleeding or discharge. Denies any possibility of . Nothing makes this better or worse. She feels tired. No fevers. T-max 99. Review of Systems Ten Systems: 10 systems reviewed and negative Constitutional: denies: Fever Ears: denies: Ear pain Nose: denies: Rhinorrhea / runny nose, Congestion Cardiac: denies: Chest pain / pressure, Palpitations Respiratory: denies: Cough GI: reports: Nausea, Vomiting. 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 - Present Medications Home Medications: Ambulatory Orders Medication Instructions Recorded Confirmed Aripiprazole [Abilify] 0 tab PO DAILY 01/25/18 01/25/18 FLUoxetine [PROzac] 0 tab PO DAILY 01/25/18 01/25/18 Ondansetron Odt [Zofran] 4 mg TL Q6H PRN #10 tablet 01/25/18 Cefdinir 300 mg PO BID #20 capsule 07/22/18 Oxycodone HCl/Acetaminophen 1 - 2 each PO Q6H PRN #14 tablet 07/22/18 [Percocet 5-325 mg Tablet] Cephalexin [Keflex] 11/28/18 Tamsulosin HCl [Flomax] 11/28/18 - Allergies Allergies/Adverse Reactions: Allergies Allergy/AdvReac Type Severity Reaction Status Date / Time No Known Drug Allergies Allergy Verified 07/21/18 21:59 - Social History Does the pt smoke?: No Smoking Status: Never smoker Does the pt drink ETOH?: No Does the pt have substance abuse?: No - Immunizations Immunizations are current?: Yes - POLST Patient has POLST: No PD ED PE NORMAL - Vitals Vital signs reviewed: Yes - General General: Alert and oriented X 3, No acute distress, Well developed/nourished - HEENT HEENT: Moist mucous membranes - Neck Neck: Supple, no meningeal sign - Cardiac Cardiac: RRR, Strong equal pulses - Respiratory Respiratory: No respiratory distress, Clear bilaterally - Abdomen Abdomen: Soft, Non tender, Non distended - Back Back: No CVA TTP - Derm Derm: Warm and dry, No rash - Extremities Extremities: No edema - Neuro Neuro: Alert and oriented X 3 - Psych Psych: Normal mood, Normal affect Results - Vitals Vitals: Vital Signs - 24 hr 06/06/19 06/06/19 15:59 18:48 Temperature 37.3 C 36.9 C Heart Rate 72 70 Respiratory 16 16 Rate Blood Pressure 134/83 H 101/56 L O2 Saturation 98 95 Oxygen O2 Source Room air - Labs Labs: Laboratory Tests 06/06/19 06/06/19 06/06/19 16:04 16:09 16:15 WBC 17.2 H RBC 4.71 Hgb 13.6 Hct 41.0 MCV 87.0 MCH 28.9 MCHC 33.2 RDW 14.7 Plt Count 372 MPV 9.6 Neut # (Auto) 14.2 H Lymph # (Auto) 1.7 [place] # (Auto) 1.1 H Eos # (Auto) 0.0 Baso # (Auto) 0.1 Absolute Nucleated RBC 0.00 Nucleated RBC % 0.0 Sodium Potassium Chloride Carbon Dioxide Anion Gap BUN Creatinine Estimated GFR (MDRD) Glucose Calcium Phosphorus Magnesium Total Bilirubin AST ALT Alkaline Phosphatase Total Protein Albumin Globulin Albumin/Globulin Ratio Lipase Urine Color YELLOW Urine Clarity HAZY Urine pH 5.5 Ur Specific [place] >=1.030 H >=1.030 H Urine Protein >=300 H Urine Glucose (UA) NEGATIVE Urine Ketones NEGATIVE Urine Occult Blood LARGE H Urine Nitrite NEGATIVE Urine Bilirubin NEGATIVE Urine Urobilinogen 0.2 (NORMAL) Ur Leukocyte Esterase NEGATIVE Urine RBC 0-5 Urine WBC 0-3 Ur Squamous Epith Cells MOD Squamous H Amorphous Sediment Few Urine Bacteria Few Urine Mucus Moderate Strands Urine Culture Comments NOT INDICATED Urine HCG, Qual NEGATIVE 06/06/19 16:15 WBC RBC Hgb Hct MCV MCH MCHC RDW Plt Count MPV Neut # (Auto) Lymph # (Auto) [place] # (Auto) Eos # (Auto) Baso # (Auto) Absolute Nucleated RBC Nucleated RBC % Sodium 138 Potassium 2.9 L Chloride 92 L Carbon Dioxide 29 Anion Gap 17.0 H BUN 26 H Creatinine 1.0 Estimated GFR (MDRD) 63 L Glucose 134 H Calcium 10.1 Phosphorus 3.2 Magnesium 2.5 Total Bilirubin 1.1 H AST 20 ALT 21 Alkaline Phosphatase 68 Total Protein 9.8 H Albumin 5.9 H Globulin 3.9 Albumin/Globulin Ratio 1.5 Lipase 29 Urine Color Urine Clarity Urine pH Ur Specific [place] Urine Protein Urine Glucose (UA) Urine Ketones Urine Occult Blood Urine Nitrite Urine Bilirubin Urine Urobilinogen Ur Leukocyte Esterase Urine RBC Urine WBC Ur Squamous Epith Cells Amorphous Sediment Urine Bacteria Urine Mucus Urine Culture Comments Urine HCG, Qual PD MEDICAL DECISION MAKING - ED course Complexity details: reviewed old records, reviewed results, re-evaluated patient, considered differential, d/w patient ED course: Symptoms resolved with Phenergan and Haldol. She has a chronic leukocytosis. Abdomen is soft, nontender nondistended on serial exam. She is well-appearing, nontoxic. Afebrile. Tolerating p.o. without difficulty. She would like to go home at this time. Patient counseled regarding signs and symptoms for which I believe and urgent re-evaluation would be necessary. Patient with good understanding of and agreement to plan and is comfortable going home at this time This document was made in part using voice recognition software. While efforts are made to proofread this document, sound alike and grammatical errors may occur. Departure - Departure Disposition: 01 Home, Self Care Clinical Impression: Dehydration Vomiting Qualifiers: Vomiting type: unspecified Vomiting Intractability: non-intractable Nausea presence: with nausea Qualified Code(s): R11.2 - Nausea with vomiting, unspecified Condition: Good Instructions: ED Nausea Vomiting Follow-Up: Your,doctor in 1 week [Other] Comments: Go home and rest. Return if you worsen. Drink plenty of fluids. This should improve over the next 12 to 24 hours. Discharge Date/Time: 06/06/19 19:01
[2019-06-06 16:26] LABS: AMORPHOUS SEDIMENT,UR Few /LPF; BACTERIA,URINE Few /HPF (None Seen); MUCUS,URINE Moderate Strands; RBC,URINE 0-5 /HPF (0-5); SQUAMOUS EPITHELIAL CELL,UR MOD Squamous (<= Few)
[2019-06-06 16:41] LABS: BASOPHILS # (AUTO) 0.1 10^3/uL (0.0-0.1); BASOPHILS % (AUTO) 0.3 %; EOSINOPHILS % (AUTO) 0.1 %; HGB - HEMOGLOBIN 13.6 g/dL (12.0-16.0); LYMPHOCYTES # (AUTO) 1.7 10^3/uL (1.5-3.5); LYMPHOCYTES % (AUTO) 9.8 %; MEAN CORPUSCULAR HEMOGLOBIN 28.9 pg (27.0-31.0); MEAN CORPUSCULAR HGB CONC 33.2 g/dL (32.0-36.0); MEAN PLATELET VOLUME 9.6 fL (7.9-10.8); MONOCYTES # (AUTO) 1.1 10^3/uL (0.0-1.0); MONOCYTES % (AUTO) 6.5 %; NEUTROPHILS # (AUTO) 14.2 10^3/uL (1.5-6.6); NEUTROPHILS % (AUTO) 82.6 %; PLT - PLATELET COUNT 372 10^3/uL (130-450); RED BLOOD COUNT 4.71 10^6/uL (4.20-5.40); RED CELL DISTRIBUTION WIDTH 14.7 % (12.0-15.0); WHITE BLOOD COUNT 17.2 x10^3/uL (4.8-10.8)
[2019-06-06 16:48] LABS: HCG UR QUAL NEGATIVE
[2019-06-06 16:53] LABS: ALBUMIN 5.9 g/dL (3.2-5.5); ALBUMIN/GLOBULIN RATIO 1.5 (1.0-2.2); BILIRUBIN,TOTAL 1.1 mg/dL (0.2-1.0); CALCIUM 10.1 mg/dL (8.5-10.3); MAGNESIUM 2.5 mg/dL (1.7-2.8); PHOSPHORUS 3.2 mg/dL (2.5-4.6); TOTAL PROTEIN 9.8 g/dL (6.7-8.2)
[2019-06-06] MEDS ORDERED: PROMETHAZINE INJ 25 MG in SODIUM CHLORIDE 0.9% 50 ML IV STA (17:16)
[2019-06-06] MEDS ORDERED: HALOPERIDOL 5 MG/ML VIAL IVP STA (17:16)
[2019-06-06 18:49] VITALS: BP 101/56
== END 2019-06-06 19:01 | disposition home or self-care (01) ==
LOC: ED 15:55
DX: E86.0 Dehydration (principal); R11.2 Nausea with vomiting, unspecified
CPT/HCPCS: 36415; 80053; 81001; 81025; 83690; 83735; 84100; 85025; 96361; 96365; 96375; 99284; J7040; 87086

== ENCOUNTER 2019-07-12 03:47 | Outpatient (CLI) | payer MEDICAID ==
[2019-07-12 04:17] LABS: CALCIUM 8.9 mg/dL (8.5-10.3); CREATININE 0.7 mg/dL (0.4-1.0); MAGNESIUM 2.3 mg/dL (1.7-2.8); PHOSPHORUS 3.7 mg/dL (2.5-4.6)
== END 2019-07-12 03:48 | disposition home or self-care (01) ==
LOC: LAB 03:47
PROVIDERS: ATTEND Internal Medicine Nephrology
DX: E87.6 Hypokalemia (principal); R82.991 Hypocitraturia; N20.0 Calculus of kidney
CPT/HCPCS: 36415; 80069; 83735

== ENCOUNTER 2019-08-04 19:06 | Emergency (ER) | payer MEDICAID ==
--- NOTE | 2019-08-04 19:47 | ED Physician Documentation ---
History of Present Illness - Stated complaint Stated Complaint: VOMITING BLOOD - Chief complaint Chief Complaint: Abd Pain - History obtained from History obtained from: Patient - History of Present Illness Timing: Enter time Pain level max: 10 Pain level now: 8 - Additonal information Additional information: 34-year-old female presents to the emergency department with 3 days of uncontrolled nausea and vomiting. She reports a history of cyclic vomiting syndrome. States that she was seen at [facility] ED last night where she received prescriptions for antiemetics. However she was discharged home and has been unable to keep anything down for the last 2 days. She reports a lot of epigastric pain. Reports that when she vomits she has blood streaked emesis. Denies melena or hematochezia. No fevers no pertinent past surgical history. In the room she is alert cooperative but appears very uncomfortable. Review of Systems Constitutional: denies: Fever, Chills, Myalgias Cardiac: denies: Chest pain / pressure, Palpitations Respiratory: denies: Dyspnea, Cough GI: reports: Abdominal Pain, Nausea, Vomiting. 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 - Present Medications Home Medications: Ambulatory Orders Medication Instructions Recorded Confirmed Aripiprazole [Abilify] 0 tab PO DAILY 01/25/18 01/25/18 FLUoxetine [PROzac] 0 tab PO DAILY 01/25/18 01/25/18 Ondansetron Odt [Zofran] 4 mg TL Q6H PRN #10 tablet 01/25/18 Prochlorperazine [Compazine] 5 mg PO Q6H 08/04/19 08/04/19 Promethazine Supp [Phenergan Supp] 25 mg [place] 08/04/19 08/04/19 - Allergies Allergies/Adverse Reactions: Allergies Allergy/AdvReac Type Severity Reaction Status Date / Time No Known Drug Allergies Allergy Verified 08/04/19 19:17 - Social History Does the pt smoke?: No Smoking Status: Never smoker Does the pt drink ETOH?: No Does the pt have substance abuse?: No - Immunizations Immunizations are current?: Yes - POLST Patient has POLST: No PD ED PE NORMAL - General General: Alert and oriented X 3, Well developed/nourished, Other (obese) - HEENT HEENT: Atraumatic, Pharynx benign - Neck Neck: Supple, no meningeal sign, No adenopathy - Cardiac Cardiac: No murmur - Respiratory Respiratory: No respiratory distress - Abdomen Abdomen: Normal bowel sounds, Soft, Other (tender over epigastrium; negative murphys; negative mcburneys) - Derm Derm: Normal color, Warm and dry - Extremities Extremities: No deformity, No tenderness to palpate - Neuro Neuro: Alert and oriented X 3, 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, No motor deficit, Normal speech Eye Opening: Spontaneous Results - Vitals Vitals: Vital Signs - 24 hr 08/04/19 08/04/19 19:14 20:34 Temperature 36.8 C Heart Rate 95 76 Respiratory 16 18 Rate Blood Pressure 130/90 H 122/83 H O2 Saturation 100 100 Oxygen O2 Source Room air - Labs Labs: Laboratory Tests 08/04/19 08/04/19 19:57 19:57 WBC 13.8 H RBC 4.09 L Hgb 12.0 Hct 35.7 L MCV 87.3 MCH 29.3 MCHC 33.6 RDW 15.0 Plt Count 296 MPV 9.4 Neut # (Auto) 11.3 H Lymph # (Auto) 1.7 [place] # (Auto) 0.7 Eos # (Auto) 0.0 Baso # (Auto) 0.0 Absolute Nucleated RBC 0.00 Nucleated RBC % 0.0 Sodium 141 Potassium 2.9 L Chloride 101 Carbon Dioxide 26 Anion Gap 14.0 H BUN 14 Creatinine 0.6 Estimated GFR (MDRD) 114 Glucose 118 H Calcium 9.3 Total Bilirubin 0.6 AST 17 ALT 19 Alkaline Phosphatase 55 Total Protein 8.2 Albumin 4.5 Globulin 3.7 Albumin/Globulin Ratio 1.2 Lipase 87 H PD MEDICAL DECISION MAKING - ED course Complexity details: reviewed results, re-evaluated patient, d/w patient ED course: 34-year-old female comes to the emergency department with chief complaint of uncontrolled vomiting. She reports a history of cyclic vomiting syndrome and was seen for similar yesterday at - In the ED pt was repleated with 1 liter of IVF and given Zofran and haldol and 1 mg dilaudid. Pt was rested for about 2 hours. On reassessment her pain had abated and she felt better. She was able to tolerate PO water and felt ready to be discharged home - no new antiemetics are rx, as she has new rx that were written at yesterday - pt is noted to have a low KCL. she is on KCL 15 mew BID. I advised she double the dose for the next 2 days - Pt's labs otherwise reasuring. mild leukocytosis to be expected given recent stressors. no anemia - Pt is to f/o closely with pcp. Emergent return precautions discussed Departure - Departure Disposition: 01 Home, Self Care Clinical Impression: Cyclic vomiting syndrome, Hypokalemia due to excessive gastrointestinal loss of potassium Condition: Stable Record reviewed to determine appropriate education?: Yes Instructions: ED Nausea Vomiting, ED Potassium Deficiency Follow-Up: PAUL PORTER DO [Primary Care Provider] - Comments: Kim I am glad you are feeling better. It is important that you follow-up with your primary doctor regarding these last 2 ED visits within the next week. Your potassium was a little bit low today and this is expected as you have been vomiting. I would advise you to take 1 extra dose of potassium chloride every day for the next 2 days. Please return to the emergency department if you have suddenly severe or worsening pain uncontrolled vomiting or feel faint.
[2019-08-04] MEDS ORDERED: ONDANSETRON 4 MG/2 ML VIAL IVP STA (19:51)
[2019-08-04] MEDS ORDERED: SODIUM CHLORIDE 0.9% 1,000 ML IV STA (19:51)
[2019-08-04] MEDS ORDERED: HYDROmorphone 1 MG/ML CARPUJECT IVP STA (19:51)
[2019-08-04] MEDS ORDERED: HALOPERIDOL 5 MG/ML VIAL IVP ONE (19:56)
[2019-08-04 20:03] LABS: BASOPHILS % (AUTO) 0.2 %; EOSINOPHILS % (AUTO) 0.1 %; LYMPHOCYTES # (AUTO) 1.7 10^3/uL (1.5-3.5); LYMPHOCYTES % (AUTO) 12.5 %; MEAN CORPUSCULAR HEMOGLOBIN 29.3 pg (27.0-31.0); MEAN CORPUSCULAR HGB CONC 33.6 g/dL (32.0-36.0); MEAN CORPUSCULAR VOLUME 87.3 fL (81.0-99.0); MEAN PLATELET VOLUME 9.4 fL (7.9-10.8); MONOCYTES # (AUTO) 0.7 10^3/uL (0.0-1.0); MONOCYTES % (AUTO) 4.8 %; NEUTROPHILS # (AUTO) 11.3 10^3/uL (1.5-6.6); NEUTROPHILS % (AUTO) 81.9 %; PLT - PLATELET COUNT 296 10^3/uL (130-450); RED BLOOD COUNT 4.09 10^6/uL (4.20-5.40); WHITE BLOOD COUNT 13.8 x10^3/uL (4.8-10.8)
[2019-08-04 20:16] LABS: ALBUMIN 4.5 g/dL (3.2-5.5); ALBUMIN/GLOBULIN RATIO 1.2 (1.0-2.2); BILIRUBIN,TOTAL 0.6 mg/dL (0.2-1.0); CALCIUM 9.3 mg/dL (8.5-10.3); CREATININE 0.6 mg/dL (0.4-1.0); TOTAL PROTEIN 8.2 g/dL (6.7-8.2)
[2019-08-04] MEDS ORDERED: POTASSIUM CHLOR 10 MEQ/100 ML 10 MEQ/100 ML BAG IV SCH (22:00)
[2019-08-04 22:37] VITALS: BP 137/80
[2019-08-04] MEDS ORDERED: SODIUM CHLORIDE 0.9% 1,000 ML IV ONE (22:42)
== END 2019-08-04 22:45 | disposition home or self-care (01) ==
LOC: ED 19:06
DX: R11.15 Cyclical vomiting syndrome unrelated to migraine (principal); E87.6 Hypokalemia; R10.13 Epigastric pain
CPT/HCPCS: 36415; 80053; 83690; 85025; 96361; 96374; 99283; 99284; J1170

== ENCOUNTER 2019-08-05 11:01 | Outpatient (CLI) | payer MEDICAID | END 2019-08-05 11:02 | disposition critical access hospital (66) | LOC: EMS 11:01 | PROVIDERS: ATTEND Surgery | DX: R55 Syncope and collapse (principal); R11.10 Vomiting, unspecified; F41.9 Anxiety disorder, unspecified | CPT/HCPCS: A0425; A0429; A0999 ==

== ENCOUNTER 2019-08-05 11:37 | Observation (INO) | payer MEDICAID ==
[2019-08-05] MEDS ORDERED: SODIUM CHLORIDE 0.9% 1,000 ML IV STA (12:22)
[2019-08-05 12:31] LABS: MUDS CUTOFF CONCENTRATIONS CUTOFF CONC BELOW:
[2019-08-05] MEDS ORDERED: KETOROLAC 30 MG/ML VIAL IVP STA (12:32)
[2019-08-05] MEDS ORDERED: HALOPERIDOL 5 MG/ML VIAL IVP ONE (12:32)
--- NOTE | 2019-08-05 12:34 | ED Physician Documentation ---
PD HPI ABD PAIN - Stated complaint Stated Complaint: VOMITING - Chief complaint Chief Complaint: Abd Pain - History obtained from History obtained from: Patient (34-year-old woman with history of cyclic vomiting syndrome, sees a notching machine operator at the [facility]. Prior work-ups have included: And endoscopies multiple times without positive findings. She has not had a gastric emptying study. She says she has flares of this condition about every 4 months related to stress but she does not want to talk to me about her current stressors. 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 BIOLOGIST: Ovarian cysts : None HEENT: None Psych: Depression, Bipolar disorder Musculoskeletal: None Derm: None - Past Surgical History Past Surgical History: Yes /CELLULAR BIOLOGIST: Other - Present Medications Home Medications: Ambulatory Orders Medication Instructions Recorded Confirmed Aripiprazole [Abilify] 0 tab PO DAILY 01/25/18 01/25/18 FLUoxetine [PROzac] 0 tab PO DAILY 01/25/18 01/25/18 Ondansetron Odt [Zofran] 4 mg TL Q6H PRN #10 tablet 01/25/18 Prochlorperazine [Compazine] 5 mg PO Q6H 08/04/19 08/04/19 Promethazine Supp [Phenergan Supp] 25 mg MT 08/04/19 08/04/19 Potassium Chloride 20 meq PO DAILY #5 tablet.er 08/05/19 - Allergies Allergies/Adverse Reactions: Allergies Allergy/AdvReac Type Severity Reaction Status Date / Time metoclopramide [From Reglan] Allergy Rash Verified 08/05/19 11:43 - Social History Does the pt smoke?: No Smoking Status: Never smoker Does the pt drink ETOH?: No Does the pt have substance abuse?: No - Immunizations Immunizations are current?: Yes - POLST Patient has POLST: No PD ED PE NORMAL - Vitals Vital signs reviewed: Yes - General General: Alert and oriented X 3 (She appears uncomfortable) - HEENT HEENT: PERRL, EOMI - Neck Neck: Supple, no meningeal sign, No bony TTP - Cardiac Cardiac: RRR, No murmur - Respiratory Respiratory: No respiratory distress, Clear bilaterally - Abdomen Abdomen: Normal bowel sounds, Soft, Non tender - Back Back: No CVA TTP, No spinal TTP - Derm Derm: Normal color, Warm and dry - Extremities Extremities: No edema, No calf tenderness / cord - Neuro Neuro: Alert and oriented X 3, Normal speech - Psych Psych: Normal mood, Normal affect Results - Vitals Vitals: Vital Signs - 24 hr 08/05/19 08/05/19 08/05/19 11:40 14:00 15:43 Temperature 37.0 C Heart Rate 76 73 Respiratory 18 18 16 Rate Blood Pressure 103/63 94/61 144/90 H O2 Saturation 99 99 99 Oxygen O2 Source Room air - Labs Labs: Laboratory Tests 08/05/19 08/05/19 08/05/19 12:23 12:23 12:45 Sodium 139 Potassium 2.8 L Chloride 100 L Carbon Dioxide 26 Anion Gap 13.0 BUN 10 Creatinine 0.6 Estimated GFR (MDRD) 114 Glucose 108 H Calcium 9.2 Total Bilirubin 0.7 AST 17 ALT 19 Alkaline Phosphatase 56 Total Protein 8.1 Albumin 4.4 Globulin 3.7 Albumin/Globulin Ratio 1.2 Lipase 36 Ur Specific [place] 1.010 Urine HCG, Qual NEGATIVE Urine Opiates Screen NEGATIVE Ur Oxycodone Screen NEGATIVE Urine Methadone Screen NEGATIVE Ur Propoxyphene Screen NEGATIVE Ur Barbiturates Screen NEGATIVE Ur Tricyclics Screen NEGATIVE Ur Phencyclidine Scrn NEGATIVE Ur Amphetamine Screen NEGATIVE U Methamphetamines Scrn NEGATIVE U Benzodiazepines Scrn POSITIVE H Urine Cocaine Screen NEGATIVE U Cannabinoids Screen POSITIVE H PD MEDICAL DECISION MAKING - ED course ED course: 34-year-old woman with an exacerbation of chronic cyclic vomiting syndrome. Some concern for cannabinoid hyperemesis as well but she does not think that is related. Initially treated with IV Toradol and Haldol with excellent improvement in her nausea and moderate improvement in her pain. This was followed by a GI cocktail. She slept for a while and then we tried to wake her up to get her to drink, she was unable and several more rounds of antiemetics were given but still unable to tolerate an oral challenge. Spoke with Dr. Sierra for observation at 4:28 PM. Departure - Departure Disposition: ED Place in Observation Clinical Impression: Hypokalemia due to excessive gastrointestinal loss of potassium Vomiting Qualifiers: Vomiting type: unspecified Vomiting Intractability: non-intractable Nausea presence: with nausea Qualified Code(s): R11.2 - Nausea with vomiting, unspeci fied Condition: Good Record reviewed to determine appropriate education?: Yes Instructions: ED Nausea Vomiting Prescriptions: Potassium Chloride 20 meq PO DAILY #5 tablet.er Comments: Continue to abstain from marijuana, return for new or worsening symptoms. Follow-up with your notching machine operator, next available appointment.
[2019-08-05 12:38] LABS: HCG UR QUAL NEGATIVE
[2019-08-05 12:45] LABS: AMPHETAMINE SCREEN,URINE NEGATIVE (NEGATIVE); COCAINE SCREEN URINE NEGATIVE (NEGATIVE); METHAMPHETAMINES SCREEN, URINE NEGATIVE (NEGATIVE); OPIATE SCREEN, URINE NEGATIVE (NEGATIVE)
[2019-08-05 12:46] LABS: BENZODIAZEPINES SCREEN, URINE POSITIVE (NEGATIVE); METHADONE SCREEN, URINE NEGATIVE (NEGATIVE); OXYCODONE SCREEN, URINE NEGATIVE (NEGATIVE); PROPOXYPHENE SCREEN, URINE NEGATIVE (NEGATIVE); TRICYCLIC ANTIDEPRESSANT,URINE NEGATIVE (NEGATIVE)
[2019-08-05 13:05] LABS: ALBUMIN 4.4 g/dL (3.2-5.5); ALBUMIN/GLOBULIN RATIO 1.2 (1.0-2.2); BILIRUBIN,TOTAL 0.7 mg/dL (0.2-1.0); CALCIUM 9.2 mg/dL (8.5-10.3); CREATININE 0.6 mg/dL (0.4-1.0); TOTAL PROTEIN 8.1 g/dL (6.7-8.2)
[2019-08-05] MEDS ORDERED: POTASSIUM CHLORIDE 20 MEQ TABLET PO STA (13:10)
[2019-08-05] MEDS ORDERED: POTASSIUM CHLOR 10 MEQ/100 ML 10 MEQ/100 ML BAG IV ONE (13:10)
[2019-08-05] MEDS ORDERED: LACTATED RINGERS 1,000 ML IV STA (13:10)
[2019-08-05] MEDS ORDERED: LIDOCAINE VISCOUS 2% 15 ML UDC MM STA (13:15)
[2019-08-05] MEDS ORDERED: MAG HYDROX/AL HYDROX/SIMETH 30 ML UDC PO STA (13:15)
[2019-08-05] MEDS ORDERED: ONDANSETRON 4 MG/2 ML VIAL IVP STA (14:59)
[2019-08-05] MEDS ORDERED: LORazepam 2 MG/ML VIAL IVP STA (15:19)
[2019-08-05] MEDS ORDERED: PROCHLORPERAZINE 10 MG/2 ML VIAL IVP STA (15:51)
[2019-08-05] MEDS ORDERED: POTASSIUM CHLORIDE 20 MEQ TABLET PO SCH (16:39)
[2019-08-05 16:41] LABS: BASOPHILS % (AUTO) 0.3 %; EOSINOPHILS # (AUTO) 0.1 10^3/uL (0.0-0.7); EOSINOPHILS % (AUTO) 0.6 %; HGB - HEMOGLOBIN 11.4 g/dL (12.0-16.0); LYMPHOCYTES # (AUTO) 2.3 10^3/uL (1.5-3.5); LYMPHOCYTES % (AUTO) 16.2 %; MEAN CORPUSCULAR HEMOGLOBIN 28.8 pg (27.0-31.0); MEAN CORPUSCULAR VOLUME 89.9 fL (81.0-99.0); MEAN PLATELET VOLUME 11.1 fL (7.9-10.8); MONOCYTES # (AUTO) 0.6 10^3/uL (0.0-1.0); MONOCYTES % (AUTO) 4.6 %; NEUTROPHILS # (AUTO) 10.9 10^3/uL (1.5-6.6); NEUTROPHILS % (AUTO) 77.9 %; PLT - PLATELET COUNT 317 10^3/uL (130-450); RED BLOOD COUNT 3.96 10^6/uL (4.20-5.40); RED CELL DISTRIBUTION WIDTH 15.5 % (12.0-15.0)
[2019-08-05] MEDS ORDERED: ZOLPIDEM 5 MG TABLET PO PRN (16:41)
[2019-08-05] MEDS ORDERED: ACETAMINOPHEN 325 MG TABLET PO PRN (16:41)
--- NOTE | 2019-08-05 16:58 | HISTORY & PHYSICAL EXAMINATION ---
Chief Complaint - Chief Complaint Chief Complaint: N/V History of Present Illness - Admitted From Admitted From:: ER - History Obtained From History obtained from: pt - History of Present Illness HPI Comment/Other: This is a 34-year-old female with a past medical history significant of cyclic vomiting syndrome, ovarian cysts, depression and bipolar, who present ER complain of uncontrolled nausea and vomiting. Pt reports she has had cyclic vomiting for 16 years. Her nausea and vomiting Was started on last night. she report IV meds helped her. pt saw a supervisor pyrotechnic loading at the [facility]. she had multiple times of endoscopies without significant positive findings. She report she has flares of this condition about every 4 to 5 months. She report she used marijuana about a week ago. UDS still reveals she has positive Marijuana. Route lab test reveals she has potassium 2.8, she has elevated WBC. In the ER, patient is afebrile, otherwise she is hemodynamically stable. She denies fever, chills, shortness of breathing, chest pain.Patient is admitted for further medical management. Discussed with patient for care goal, patient requires full code. 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 she has one son living with his father. 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 - POLST Patient has POLST: No Meds/Allgy - Home Medications Home Medications: Ambulatory Orders Medication Instructions Recorded Confirmed FLUoxetine [PROzac] 40 mg PO DAILY 01/25/18 08/05/19 ARIPiprazole [Aripiprazole] 10 mg PO DAILY 08/05/19 08/05/19 LORazepam [Lorazepam] 0.5 mg PO DAILY PRN 08/05/19 08/05/19 Ondansetron [Ondansetron Odt] 4 mg PO Q6H PRN 08/05/19 08/05/19 Potassium Citrate/Citric Acid 15 ml PO BID 08/05/19 08/05/19 [Potassium Cit-Citric Acid Soln] Prochlorperazine Maleate 10 mg PO TID PRN 08/05/19 08/05/19 Promethazine HCl [Phenadoz] 25 mg RC Q6H PRN 08/05/19 08/05/19 Promethazine Supp [Phenergan Supp] 25 mg RC Q6H PRN 08/05/19 08/05/19 Scopolamine 1 patch TOP Q3D PRN 08/05/19 08/05/19 - Allergies Allergies/Adverse Reactions: Allergies Allergy/AdvReac Type Severity Reaction Status Date / Time metoclopramide [From Reglan] Allergy Rash Verified 08/05/19 11:43 Review of Systems - Constitutional Constitutional: denies: Fatigue, Fever, Chills, Malaise, Weakness, Poor appetite, Diaphoresis, Night sweats - Eyes Eyes: denies: Pain, Blurred vision, Spots in vision, Field loss, Vision loss, Dipolpia - Ears, Nose & Throat Ears, Nose & Throat: denies: Ear pain, Vertigo, Nasal discharge, Nosebleeds, Nasal congestion, Sore throat, Mouth lesions, Bleeding gums - Cardiovascular Cariovascular: denies: Irregular heart rate, Palpitations, Chest pain, Edema, Lightheadedness, Syncope, Exertional dyspnea, Decr. exercise tolerance - Respiratory Respiratory: denies: Cough, Sputum production, Wheezing, Snoring, Hemoptysis, Orthopnea, SOB at rest, SOB with exertion - Gastrointestinal Gastrointestinal: reports: Nausea, Vomiting. denies: Abdominal pain, Abdominal distention, Constipation, Diarrhea, Rectal bleeding, Black stools, Bloody stools, Coffee grounds emesis, Reflux/heartburn - Genitourinary Genitourinary: denies: Dysuria, Frequency, Urgency, Hematuria, Incontinence, Flank pain, Urethral discharge - Musculoskeletal Musculoskeletal: denies: Muscle pain, Back pain, Stiffness, Limited range of motion, Muscle weakness, Joint pain - Integumentary Integumentary: denies: Rash, Pruritis, Lesions, Dryness, Lumps, Acne, Pigment changes, Nail changes - Neurological Neurological: denies: General weakness, Focal weakness, Headache, Dizziness, Numbness, Memory problems, Pre-existing deficit, Abnormal gait, Seizures, Incoordination, Slurred speech - Psychiatric Psychiatric: denies: Depression, Anxiety, Suicidal, Delusions, Hallucinations, Homicidal - Endocrine Endocrine: denies: Polyuria, Polydypsia, Polyphagia - Hematologic/Lymphatic Hematologic/Lymphatic: denies: Anemia, Petechiae, Blood clots, Bleeding tendencies, Recurrent infections Exam - Vital Signs Vital Signs: Vital Signs x48h Temp Pulse Resp BP Pulse Ox 08/05/19 16:40 76 16 139/90 H 95 08/05/19 15:43 16 144/90 H 99 08/05/19 14:00 73 18 94/61 99 08/05/19 11:40 37.0 C 76 18 103/63 99 - Physical Exam General Appearance: positive: No acute distress, Alert. negative: Lethargic Eyes Bilateral: positive: Normal inspection, PERRL, No lid inflammation ENT: positive: ENT inspection nml, No signs of dehydration. negative: Purulent nasal drainage, Oral lesions Neck: positive: Nml inspection, Thyroid nml, Trachea midline. negative: Thyromegaly, Stiff neck, Tracheal deviation Respiratory: positive: Chest non-tender, No respiratory distress, Breath sounds nml. negative: Wheezes, Rales, Rhonchi Cardiovascular: positive: Regular rate & rhythm, No murmur, No gallop. n egative: Extrasystoles, Tachycardia, Bradycardia, JVD present, Systolic murmur, Diastolic murmur Peripheral Pulses: positive: 2+ Abdomen: positive: Non-tender, No organomegaly, Nml bowel sounds, No distention. negative: Tenderness, Guarding, Rebound Back: positive: Nml inspection. negative: CVA tenderness (R), CVA tenderness (L) Skin: positive: Color nml, No rash, Warm, Dry. negative: Cyanosis, Diaphoresis, Pallor Extremities: positive: Non-tender, Full ROM, Nml appearance. negative: Calf tenderness, Manolo's sign/cords Neurologic/Psychiatric: positive: Oriented x3, Motor nml, Sensation nml. negative: Weakness, Sensory loss, Facial droop, Slurred/abnml speech, Depressed mood/affect Conclusion/Plan - Problem List (1) Cyclic vomiting syndrome Conclusion/Plan: Patient had history of cyclic vomiting syndrome for many years.Patient UDS analysis reveals still positive for marijuana. Patient had multiple endoscopy done before which revealed unremarkable. Patient's nausea vomiting could not be controlled in the ER. Plan, bowel rest, intravenous IV fluids, antiemesis PRN. (2) Hypokalemia Conclusion/Plan: Patient potassium 2.8, is likely secondary to patient vomiting, replaced of potassium, continue to monitor (3) Depression Conclusion/Plan: Patient has history of depression, will resume home medication Prozac (4) Bipolar 1 disorder Conclusion/Plan: Patient has history of bipolar, will resume home medication Abilify (5) Leukocytosis Conclusion/Plan: Patient has elevated WBC at 14, patient has a history of elevated WBC, patient had no fever or chilling, cough or SOB. it also can be reactive and distress. we will continue urinalysis, vital and lab monitor. - Lab Results Fish Bones: 08/05/19 12:45 08/05/19 12:45 Core Measures - Anticipated LOS I expect patient to be DC'd or transferred within 96 hours.: Yes - DVT/VTE - Prophylaxis VTE/DVT Device ordered at admit?: Yes VTE/DVT Prophylaxis med ordered at admit?: Yes
[2019-08-05 17:22] LABS: BILIRUBIN,URINE NEGATIVE (NEGATIVE); GLUCOSE, URINE (UA) NEGATIVE (NEGATIVE); KETONES,URINE (UA) 15 mg/dL (NEGATIVE); LEUKOCYTE ESTERASE, URINE NEGATIVE (NEGATIVE); NITRITE,URINE NEGATIVE (NEGATIVE); OCCULT BLOOD,URINE SMALL (NEGATIVE); PH,URINE >=9.0 PH (5.0-7.5); PROTEIN,URINE TRACE mg/dL (NEGATIVE); UROBILINOGEN,URINE 1 (NORMAL) E.U./dL (NORMAL)
[2019-08-05 17:26] LABS: CLARITY,URINE CLEAR (CLEAR)
--- NOTE | 2019-08-05 17:27 | PHARMACY PROGRESS NOTE ---
- Best Possible Medication History Admit Date and Time: 08/05/19 1641 Processed by: Pharmacy Medication History completed: Yes Patient Interview: Completed Secondary Source(s): Pharmacy records, Insurance records As the person ultimately responsible for medication therapy, providers are able to order a medication from an existing home medication list in [facility] via the "Reconcile Routine" prior to Confirmation of that medication by practice support specialist. Such practice is discouraged except when the physician, in their clinical judgment, deems that a medical need exists for a medication without regard to previous use.
[2019-08-05 17:32] LABS: BACTERIA,URINE Few /HPF (None Seen); SQUAMOUS EPITHELIAL CELL,UR MANY Squamous (<= Few)
[2019-08-05] MEDS ORDERED: cloNIDine 0.1 MG TABLET PO PRN (17:42)
[2019-08-05] MEDS ORDERED: SCOPOLAMINE PATCH TOP PRN (18:00)
[2019-08-05] MEDS: SODIUM CHLORIDE FLUSH 0.9% 10 ML SYRINGE IVP PRN (18:10)
[2019-08-05] MEDS: PANTOPRAZOLE 40 MG VIAL IVP SCH (18:10)
[2019-08-05] MEDS: D5.45NS W/20 MEQ KCL 1,000 ML IV SCH (18:11)
[2019-08-05] MEDS: POTASSIUM CHLOR 10 MEQ/100 ML 10 MEQ/100 ML BAG IV SCH ×6 (18:12→23:46)
[2019-08-05] MEDS: SODIUM CHLORIDE FLUSH 0.9% 10 ML SYRINGE IVP SCH (18:12)
[2019-08-05] MEDS: ONDANSETRON 4 MG/2 ML VIAL IVP PRN (20:39)
[2019-08-05] MEDS ORDERED: CITRIC ACID PO SCH (21:00)
[2019-08-05] MEDS ORDERED: [UNRECOGNIZED DRUG - OTHER] PO SCH (21:00)
[2019-08-05] MEDS ORDERED: POTASSIUM CITRATE PO SCH (21:00)
[2019-08-06] MEDS: POTASSIUM CHLOR 10 MEQ/100 ML 10 MEQ/100 ML BAG IV SCH ×2 (00:54→01:59)
[2019-08-06] MEDS: PROCHLORPERAZINE 10 MG/2 ML VIAL IVP PRN ×2 (01:56→05:21)
[2019-08-06] MEDS: ONDANSETRON 4 MG/2 ML VIAL IVP PRN (03:14)
[2019-08-06] MEDS: SODIUM CHLORIDE FLUSH 0.9% 10 ML SYRINGE IVP SCH ×2 (04:25→11:00)
[2019-08-06] MEDS: D5.45NS W/20 MEQ KCL 1,000 ML IV SCH ×2 (04:45→13:23)
[2019-08-06] MEDS: LORazepam 0.5 MG TABLET PO PRN ×2 (04:50→11:09)
[2019-08-06] MEDS: SODIUM CHLORIDE FLUSH 0.9% 10 ML SYRINGE IVP PRN ×3 (04:51→06:34)
[2019-08-06] MEDS: PANTOPRAZOLE 40 MG VIAL IVP SCH (06:27)
[2019-08-06] MEDS ORDERED: FLUoxetine 10 MG CAPSULE PO SCH (09:00)
[2019-08-06] MEDS ORDERED: ENOXAPARIN 40 MG/0.4 ML SYRINGE SUBQ SCH (09:00)
[2019-08-06] MEDS ORDERED: ARIPiprazole 5 MG TABLET PO SCH (09:00)
[2019-08-06] MEDS ORDERED: ONDANSETRON ODT 4 MG TABLET PO PRN (09:09)
[2019-08-06] MEDS ORDERED: LORazepam 0.5 MG TABLET PO PRN (09:09)
[2019-08-06] MEDS ORDERED: PROCHLORPERAZINE 5 MG TABLET PO PRN (09:24)
[2019-08-06 09:29] LABS: BASOPHILS % (AUTO) 0.2 %; EOSINOPHILS % (AUTO) 0.2 %; HGB - HEMOGLOBIN 10.8 g/dL (12.0-16.0); LYMPHOCYTES # (AUTO) 2.6 10^3/uL (1.5-3.5); LYMPHOCYTES % (AUTO) 20.1 %; MEAN CORPUSCULAR HEMOGLOBIN 29.3 pg (27.0-31.0); MEAN CORPUSCULAR VOLUME 88.9 fL (81.0-99.0); MEAN PLATELET VOLUME 9.6 fL (7.9-10.8); MONOCYTES # (AUTO) 0.7 10^3/uL (0.0-1.0); MONOCYTES % (AUTO) 5.5 %; NEUTROPHILS # (AUTO) 9.3 10^3/uL (1.5-6.6); NEUTROPHILS % (AUTO) 73.7 %; PLT - PLATELET COUNT 227 10^3/uL (130-450); RED BLOOD COUNT 3.68 10^6/uL (4.20-5.40); RED CELL DISTRIBUTION WIDTH 15.1 % (12.0-15.0); WHITE BLOOD COUNT 12.7 x10^3/uL (4.8-10.8)
[2019-08-06 09:45] LABS: CALCIUM 8.7 mg/dL (8.5-10.3); CREATININE 0.5 mg/dL (0.4-1.0); MAGNESIUM 1.9 mg/dL (1.7-2.8)
[2019-08-06 12:48] VITALS: BP 99/53
--- NOTE | 2019-08-06 12:58 | Discharge Plan ---
Discharge Plan Problem Reviewed?: Yes Disposition: Home, Self Care Condition: Stable Diet: Regular Activity Restrictions: Activity as Tolerated Shower Restrictions: No Driving Restrictions: No Instruction Topics: ED Nausea Vomiting Health Concerns: You were here to manage unrelenting nausea and vomiting which gave you electrolyte abnormalities like a very low potassium. The electrolytes and fluids have been replaced and are now normal. You are being released. Stay well-hydrated. Advance your diet as tolerated. Use the medicines you already have at home to treat any further nausea and vomiting. Avoid marijuana, which can add to nausea and vomiting. Plan of Treatment: As above. Care Goals: Improvement in symptoms and stabilization are the goals. Assessment: The patient understands and is agreeable with the plan. Additional Instructions or Follow Up instructions: Continue to abstain from marijuana, return for new or worsening symptoms. Follow-up with your metabolic specialist, next available appointment. No Smoking: If you smoke, Please STOP! Call for help.
--- NOTE | 2019-08-06 13:01 | DISCHARGE SUMMARY ---
Discharge Summary Admit Date: 08/05/19 Discharge Date: 08/06/19 Discharging Provider: Dr Carissa Sierra Primary Care Provider: Dr Ashley Figueroa Code Status: Attempt Resuscitation Condition at Discharge: Stable Discharge Disposition: 01 Home, Self Care - HPI History of Present Illness: From the admission H&P of Arnie Ham MANAGER COLLECTION: This is a 34-year-old female with a past medical history significant for cyclic vomiting syndrome, ovarian cysts, depression and bipolar disorder, who presented to the ER complaining of uncontrolled nausea and vomiting. Pt reports she has had cyclic vomiting for 16 years. Her nausea and vomiting started last night. Pt has seen a Regrinder Operator at the [facility]. She had multiple endoscopies without significant positive findings. She reports she has flares of this condition about every 4 to 5 months. She report she used marijuana "about a week ago", but the urine drug screen still reveals she has p ositive marijuana in her system today. Routine lab tests also revealed she has potassium of 2.8, she has elevated WBC. She reports the IV meds given in ER helped her. The patient is afebrile and hemodynamically stable. She denies fever, chills, shortness of breath or chest pain. Patient is being placed in Observation for further medical management. Discussed with patient her care goals; patient requests to be a full code. - HOSPITAL COURSE Hospital Course: 1) Cyclic vomiting syndrome Abdominal exam was benign. Patient has a history of cyclic vomiting syndrome for many years. Her urine drug screen analysis was still positive for marijuana, which could have precipitated cyclical vomiting. Her nausea & vomiting could not be controlled in the ER, therefore we ordered bowel rest, intravenous IV fluids, antiemetics PRN. By the morning, she tried clear liquids and at lunch felt comfortable to go home. She was advised to advance her diet very slowly, as tolerated. It was recommended that she stop using marijuana w hich could precipitate nausea and vomiting for her. (2) Hypokalemia Patient potassium was 2.8, likely secondary to patient vomiting. It was replaced and closely monitored. The serum Potassium was 3.8 at discharge. (3) Depression Patient has history of depression; she was kept on her home medication Prozac. (4) Bipolar 1 disorder Patient has history of bipolar disorder; she was kept on her home medication Abilify. (5) Leukocytosis Patient has elevated WBC of 14; patient has a history of elevated WBC, with no fever or chills, cough or SOB; no focus of infection. This may have been reactive, from distress. It was decreasing to 12 at discharge the next day. - ALLERGIES Allergies/Adverse Reactions: Allergies Allergy/AdvReac Type Severity Reaction Status Date / Time metoclopramide [From Reglan] Allergy Rash Verified 08/05/19 11:43 - MEDICATIONS Home Medications: Ambulatory Orders Medication Instructions Recorded Confirmed FLUoxetine [PROzac] 40 mg PO DAILY 01/25/18 08/09/19 ARIPiprazole [Aripiprazole] 10 mg PO DAILY 08/05/19 08/09/19 LORazepam [Lorazepam] 0.5 mg PO DAILY PRN 08/05/19 08/09/19 Ondansetron [Ondansetron Odt] 4 mg PO Q6H PRN 08/05/19 08/09/19 Potassium Citrate/Citric Acid 15 ml PO BID 08/05/19 08/09/19 [Potassium Cit-Citric Acid Soln] Prochlorperazine Maleate 10 mg PO TID PRN 08/05/19 08/09/19 Promethazine Supp [Phenergan Supp] 25 mg RC Q6H PRN 08/05/19 08/09/19 Scopolamine 1 patch TOP Q3D PRN 08/05/19 08/09/19 Cholecalciferol [Vitamin D3] 5,000 unit ORAL DAILY 08/08/19 08/08/19 - PHYSICAL EXAM AT DISCHARGE General Appearance: positive: No acute distress, Alert Eyes Bilateral: positive: Normal inspection, EOMI, No lid inflammation ENT: positive: ENT inspection nml, No signs of dehydration Neck: positive: Nml inspection, No JVD Respiratory: positive: No respiratory distress Cardiovascular: positive: Regular rate & rhythm, No murmur Abdomen: positive: Non-tender, Other (Obese with a pannus) Skin: positive: Color nml Extremities: positive: Non-tender, No pedal edema Neurologic/Psychiatric: positive: Oriented x3, Other (Non-focal ) - LABS Result Diagrams: 08/06/19 09:24 08/06/19 09:24 - FOLLOW UP Follow Up: See PCP for routine follow-up.
== END 2019-08-06 13:55 | disposition home or self-care (01) ==
LOC: EDUNIT# → ED 11:37 → MS2 16:41
PROVIDERS: ADMIT Nurse Practitioner Gerontology; ATTEND Internal Medicine
DX: R11.15 Cyclical vomiting syndrome unrelated to migraine (principal); E87.6 Hypokalemia; F31.9 Bipolar disorder, unspecified; D72.829 Elevated white blood cell count, unspecified; R82.5 Elevated urine levels of drugs, medicaments and biological substances; Z72.89 Other problems related to lifestyle
CPT/HCPCS: 36415; 80048; 80053; 80306; 81001; 81025; 83690; 83735; 85025; 96361; 96365; 96366; 96372; 96375; 96376; 99283; 99285; A9270; G0378; J1650; J2060; J3490; J7120; Q0162; 87086

== ENCOUNTER 2019-08-08 16:48 | Observation (INO) | payer MEDICAID ==
[2019-08-08] MEDS ORDERED: SODIUM CHLORIDE 0.9% 1,000 ML IV STA ×3 (17:07→20:00)
[2019-08-08 17:20] LABS: GLUCOSE, URINE (UA) NEGATIVE (NEGATIVE); KETONES,URINE (UA) >=80 mg/dL (NEGATIVE); LEUKOCYTE ESTERASE, URINE NEGATIVE (NEGATIVE); NITRITE,URINE NEGATIVE (NEGATIVE); OCCULT BLOOD,URINE MODERATE (NEGATIVE); PROTEIN,URINE 30 mg/dL (NEGATIVE); UROBILINOGEN,URINE 4 E.U./dL (NORMAL)
[2019-08-08 17:26] LABS: BILIRUBIN,URINE NEGATIVE (NEGATIVE); CLARITY,URINE HAZY (CLEAR); HCG UR QUAL NEGATIVE; ICTOTEST,URINE NEGATIVE
[2019-08-08 17:34] LABS: BACTERIA,URINE None Seen /HPF (None Seen); MUCUS,URINE Moderate Strands; SQUAMOUS EPITHELIAL CELL,UR FEW Squamous (<= Few)
[2019-08-08 17:35] LABS: BASOPHILS % (AUTO) 0.3 %; EOSINOPHILS % (AUTO) 0.3 %; HGB - HEMOGLOBIN 11.3 g/dL (12.0-16.0); LYMPHOCYTES # (AUTO) 1.9 10^3/uL (1.5-3.5); LYMPHOCYTES % (AUTO) 14.1 %; MEAN CORPUSCULAR HEMOGLOBIN 27.9 pg (27.0-31.0); MEAN CORPUSCULAR HGB CONC 32.8 g/dL (32.0-36.0); MEAN CORPUSCULAR VOLUME 84.9 fL (81.0-99.0); MEAN PLATELET VOLUME 9.2 fL (7.9-10.8); MONOCYTES # (AUTO) 0.8 10^3/uL (0.0-1.0); MONOCYTES % (AUTO) 5.7 %; NEUTROPHILS # (AUTO) 10.3 10^3/uL (1.5-6.6); NEUTROPHILS % (AUTO) 79.1 %; PLT - PLATELET COUNT 260 10^3/uL (130-450); RED BLOOD COUNT 4.05 10^6/uL (4.20-5.40); RED CELL DISTRIBUTION WIDTH 14.5 % (12.0-15.0); WHITE BLOOD COUNT 13.1 x10^3/uL (4.8-10.8)
[2019-08-08 17:48] LABS: ALBUMIN 4.5 g/dL (3.2-5.5); ALBUMIN/GLOBULIN RATIO 1.3 (1.0-2.2); BILIRUBIN,TOTAL 1.1 mg/dL (0.2-1.0); CALCIUM 9.1 mg/dL (8.5-10.3); CREATININE 0.7 mg/dL (0.4-1.0); MAGNESIUM 2.1 mg/dL (1.7-2.8); PHOSPHORUS 3.1 mg/dL (2.5-4.6); TOTAL PROTEIN 8.1 g/dL (6.7-8.2)
[2019-08-08] MEDS ORDERED: HALOPERIDOL 5 MG/ML VIAL IM STA (17:56)
[2019-08-08] MEDS ORDERED: diphenhydrAMINE INJ 50 MG/ML VIAL IVP STA (17:56)
--- NOTE | 2019-08-08 17:59 | ED Physician Documentation ---
History of Present Illness - Stated complaint Stated Complaint: VOMITING - Chief complaint Chief Complaint: Abd Pain - History obtained from History obtained from: Patient - History of Present Illness Timing: Today Pain level max: 5 Pain level now: 4 - Additonal information Additional information: 34-year-old female with a longstanding history of cyclical vomiting syndrome. She states that she quit using marijuana 2 weeks ago. She was seen here 4 to 5 days ago, given medications felt better, then returned and was placed in observation, was then discharged and went to the [facility] yesterday, she was sent home last night. Vomiting has continued today. Nothing makes it better or worse. 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 cysts : None HEENT: None Psych: Depression, Bipolar disorder Musculoskeletal: None Derm: None - Past Surgical History Past Surgical History: Yes /CABBAGE SALTER: Other - Present Medications Home Medications: Ambulatory Orders Medication Instructions Recorded Confirmed FLUoxetine [PROzac] 40 mg PO DAILY 01/25/18 08/05/19 ARIPiprazole [Aripiprazole] 10 mg PO DAILY 08/05/19 08/05/19 LORazepam [Lorazepam] 0.5 mg PO DAILY PRN 08/05/19 08/05/19 Ondansetron [Ondansetron Odt] 4 mg PO Q6H PRN 08/05/19 08/05/19 Potassium Citrate/Citric Acid 15 ml PO BID 08/05/19 08/05/19 [Potassium Cit-Citric Acid Soln] Prochlorperazine Maleate 10 mg PO TID PRN 08/05/19 08/05/19 Promethazine Supp [Phenergan Supp] 25 mg RC Q6H PRN 08/05/19 08/05/19 Scopolamine 1 patch TOP Q3D PRN 08/05/19 08/05/19 Cholecalciferol [Vitamin D3] 5,000 unit ORAL DAILY 08/08/19 08/08/19 - Allergies Allergies/Adverse Reactions: Allergies Allergy/AdvReac Type Severity Reaction Status Date / Time metoclopramide [From Reglan] Allergy Rash Verified 08/05/19 11:43 - Social History Does the pt smoke?: No Smoking Status: Never smoker Does the pt drink ETOH?: No Does the pt have substance abuse?: No - Immunizations Immunizations are current?: Yes - POLST Patient has POLST: No PD ED PE NORMAL - Vitals Vital signs reviewed: Yes - General General: Alert and oriented X 3, No acute distress - HEENT HEENT: Moist mucous membranes - Neck Neck: Supple, no meningeal sign - Cardiac Cardiac: RRR - Respiratory Respiratory: No respiratory distress, Clear bilaterally - Abdomen Abdomen: Soft, Non tender, Non distended - Back Back: No CVA TTP - Derm Derm: Warm and dry - Neuro Neuro: Alert and oriented X 3 - Psych Psych: Normal mood, Normal affect Results - Vitals Vitals: Vital Signs - 24 hr 08/08/19 08/08/19 16:55 21:15 Temperature 36.7 C Heart Rate 73 83 Respiratory 18 20 Rate Blood Pressure 132/98 H 143/92 H O2 Saturation 100 99 Oxygen O2 Source Room air - Labs Labs: Laboratory Tests 08/08/19 08/08/19 08/08/19 17:12 17:28 17:28 WBC 13.1 H RBC 4.05 L Hgb 11.3 L Hct 34.4 L MCV 84.9 MCH 27.9 MCHC 32.8 RDW 14.5 Plt Count 260 MPV 9.2 Neut # (Auto) 10.3 H Lymph # (Auto) 1.9 [place] # (Auto) 0.8 Eos # (Auto) 0.0 Baso # (Auto) 0.0 Absolute Nucleated RBC 0.00 Nucleated RBC % 0.0 Sodium 134 L Potassium 2.6 L Chloride 91 L Carbon Dioxide 27 Anion Gap 16.0 H BUN 16 Creatinine 0.7 Estimated GFR (MDRD) 96 Glucose 95 Calcium 9.1 Phosphorus 3.1 Magnesium 2.1 Total Bilirubin 1.1 H AST 19 ALT 34 Alkaline Phosphatase 55 Total Protein 8.1 Albumin 4.5 Globulin 3.6 Albumin/Globulin Ratio 1.3 Lipase 27 Urine Color DARK YELLOW Urine Clarity HAZY Urine pH 7.0 Ur Specific [place] 1.020 Urine Protein 30 H Urine Glucose (UA) NEGATIVE Urine Ketones >=80 H Urine Occult Blood MODERATE H Urine Nitrite NEGATIVE Urine Bilirubin NEGATIVE Urine Urobilinogen 4 H Ur Leukocyte Esterase NEGATIVE Urine RBC 6-10 H Urine WBC 0-3 Ur Squamous Epith Cells FEW Squamous Urine Bacteria None Seen Urine Mucus Moderate Strands Ur Microscopic Review INDICATED Urine Culture Comments NOT INDICATED Urine HCG, Qual NEGATIVE PD MEDICAL DECISION MAKING - ED course Complexity details: reviewed results, re-evaluated patient, considered differential, d/w patient ED course: Patient was given Haldol, Benadryl, Phenergan, Zofran, IV fluids. She is still unable to tolerate p.o. She will need to be placed back in the hospital for further care. Discussed the case with Dr. Neil, hospitalist who accepts This document was made in part using voice recognition software. While efforts are made to proofread this document, sound alike and grammatical errors may occur. Departure - Departure Disposition: ED Place in Observation Clinical Impression: Hypokalemia Vomiting Qualifiers: Vomiting type: unspecified Vomiting Intractability: intractable Nausea presence: with nausea Qualified Code(s): R11.2 - Nausea with vomiting, unspecified Condition: Good
[2019-08-08] MEDS ORDERED: PROMETHAZINE 25 MG/1 ML VIAL IM STA (20:00)
[2019-08-08] MEDS ORDERED: ONDANSETRON 4 MG/2 ML VIAL IVP STA (20:00)
[2019-08-08] MEDS ORDERED: PROMETHAZINE 25 MG/1 ML VIAL IM PRN (21:49)
--- NOTE | 2019-08-08 21:55 | HISTORY & PHYSICAL EXAMINATION ---
Chief Complaint - Chief Complaint Chief Complaint: intractable nausea and vomiting History of Present Illness - Admitted From Admitted From:: [facility] ED - History Obtained From Records Reviewed: yes History obtained from: patient - History of Present Illness HPI Comment/Other: Patient is a 34-year-old female who presented to the ED with complaint of intractable nausea and vomiting. She has vomited at least 12 times in the past 24 hours. She last vomited about 5 minutes after presentation to the medical floor. She has history of cyclical vomiting syndrome and was last admitted to the hospital on August 08, 2019 with the same complaint. She reports quitting the use of marijuana about 10 days ago. She has been seen by GI at the [facility] and has undergone multiple endoscopies with no significant findings. In the ED today she was also found to have a potassium of 2.6. She denies chest pain, dyspnea or fever. She reports abdominal soreness from constant vomiting. She is being admitted for further treatment of her symptoms History - Past Medical History Cardiovascular: reports: None Respiratory: reports: None Neuro: reports: None Endocrine/Autoimmune: reports: None GI: reports: None, Other (cyclic vomiting syndrome) PATIENT CARE TECHNICIAN: reports: Ovarian cysts : reports: None HEENT: reports: None Psych: reports: Depression, Bipolar disorder Musculoskeletal: reports: None Derm: reports: None MRSA Hx?: No - Past Surgical History /PATIENT CARE TECHNICIAN: reports: Other - Family & Social History Family History: Mother: Alive and Well, CVA/TIA, Diabetes, Type 2, Father: Alive and Well Family History Comment/Other: pt report her father is living at [facility], he has hx of CVA, DM2 and kidney stone, she did not know much about her biology mother. she has one son living with his father. 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 She reports quitting marijuana about 10-11 days ago - POLST Patient has POLST: No POLST Status: Full Code Meds/Allgy - Home Medications Home Medications: Ambulatory Orders Medication Instructions Recorded Confirmed FLUoxetine [PROzac] 40 mg PO DAILY 01/25/18 08/05/19 ARIPiprazole [Aripiprazole] 10 mg PO DAILY 08/05/19 08/05/19 LORazepam [Lorazepam] 0.5 mg PO DAILY PRN 08/05/19 08/05/19 Ondansetron [Ondansetron Odt] 4 mg PO Q6H PRN 08/05/19 08/05/19 Potassium Citrate/Citric Acid 15 ml PO BID 08/05/19 08/05/19 [Potassium Cit-Citric Acid Soln] Prochlorperazine Maleate 10 mg PO TID PRN 08/05/19 08/05/19 Promethazine Supp [Phenergan Supp] 25 mg RC Q6H PRN 08/05/19 08/05/19 Scopolamine 1 patch TOP Q3D PRN 08/05/19 08/05/19 Cholecalciferol [Vitamin D3] 5,000 unit ORAL DAILY 08/08/19 08/08/19 - Allergies Allergies/Adverse Reactions: Allergies Allergy/AdvReac Type Severity Reaction Status Date / Time metoclopramide [From Reglan] Allergy Rash Verified 08/05/19 11:43 Review of Systems - Constitutional Constitutional: reports: Chills. denies: Fatigue, Fever - Eyes Eyes: denies: Pain - Ears, Nose & Throat Ears, Nose & Throat: denies: Ear pain - Cardiovascular Cariovascular: denies: Irregular heart rate, Palpitations, Chest pain, Edema - Respiratory Respiratory: denies: Cough, Sputum production, Wheezing - Gastrointestinal Gastrointestinal: reports: Abdominal pain, Nausea, Vomiting. denies: Abdominal distention - Genitourinary Genitourinary: denies: Dysuria, Frequency, Urgency, Hematuria - Musculoskeletal Musculoskeletal: denies: Muscle pain, Back pain, Muscle aches, Stiffness - Integumentary Integumentary: denies: Rash, Pruritis, Lesions, Dryness - Neurological Neurological: denies: General weakness - Psychiatric Psychiatric: reports: Depression - Endocrine Endocrine: denies: Polyuria, Polydypsia - Hematologic/Lymphatic Hematologic/Lymphatic: denies: Anemia, Bruising Prior Level of Functionality: She is independent of activities of daily living Exam - Vital Signs Vital Signs: Vital Signs x48h Temp Pulse Resp BP Pulse Ox 08/08/19 21:15 83 20 143/92 H 99 08/08/19 16:55 36.7 C 73 18 132/98 H 100 - Physical Exam General Appearance: positive: Alert, Mild distress Eyes Bilateral: positive: PERRL, EOMI ENT: positive: ENT inspection nml Neck: positive: No JVD, Trachea midline Respiratory: positive: Chest non-tender, No respiratory distress, Breath sounds nml. negative: Wheezes, Rales, Rhonchi Cardiovascular: positive: Regular rate & rhythm, No murmur Abdomen: positive: Non-tender, No organomegaly, Nml bowel sounds, No distention. negative: Guarding, Rebound Back: positive: Nml inspection Skin: positive: Color nml, No rash, Warm Extremities: positive: Non-tender, Full ROM, Nml appearance, No pedal edema Neurologic/Psychiatric: positive: Oriented x3, Mood/affect nml Conclusion/Plan - Problem List (1) Cyclic vomiting syndrome Conclusion/Plan: Zofran, Compazine and Phenergan ordered PRN. IV hydration with normal saline (2) Hypokalemia Conclusion/Plan: Potassium was 2.6. Likely related to vomiting. Will replace and recheck in the morning (3) Bipolar 1 disorder Conclusion/Plan: On Abilify (4) Depression Conclusion/Plan: On Prozac - Lab Results Fish Bones: 08/08/19 17:28 08/08/19 17:28 Core Measures - Anticipated LOS I expect patient to be DC'd or transferred within 96 hours.: Yes - DVT/VTE - Prophylaxis VTE/DVT Device ordered at admit?: Yes
[2019-08-08] MEDS ORDERED: LORazepam 2 MG/ML VIAL IVP STA (21:56)
[2019-08-08] MEDS ORDERED: POTASSIUM CHLOR 10 MEQ/100 ML 10 MEQ/100 ML BAG IV SCH (22:00)
[2019-08-08] MEDS ORDERED: SODIUM CHLORIDE 0.9% 1,000 ML IV SCH (22:00)
[2019-08-08] MEDS: SODIUM CHLORIDE FLUSH 0.9% 10 ML SYRINGE IVP PRN (23:30)
[2019-08-08] MEDS: NS W/40 MEQ KCL 1,000 ML IV SCH (23:30)
[2019-08-08] MEDS: ONDANSETRON 4 MG/2 ML VIAL IVP PRN (23:49)
[2019-08-09] MEDS ORDERED: LORazepam 2 MG/ML VIAL IVP STA (00:09)
[2019-08-09] MEDS ORDERED: PROMETHAZINE 25 MG/1 ML VIAL IV PRN (00:10)
[2019-08-09] MEDS ORDERED: LORazepam 2 MG/ML VIAL IVP PRN (00:49)
[2019-08-09] MEDS: SODIUM CHLORIDE FLUSH 0.9% 10 ML SYRINGE IVP PRN ×4 (02:02→12:53)
[2019-08-09] MEDS: SODIUM CHLORIDE FLUSH 0.9% 10 ML SYRINGE IVP SCH ×3 (02:51→16:45)
[2019-08-09] MEDS: NS W/40 MEQ KCL 1,000 ML IV SCH (03:27)
[2019-08-09] MEDS: PROCHLORPERAZINE 10 MG/2 ML VIAL IVP PRN ×2 (03:28→12:53)
[2019-08-09] MEDS ORDERED: NS W/40 MEQ KCL 1,000 ML IV SCH (04:00)
[2019-08-09] MEDS: ONDANSETRON 4 MG/2 ML VIAL IVP PRN ×2 (05:42→12:53)
[2019-08-09 05:55] LABS: BASOPHILS % (AUTO) 0.3 %; EOSINOPHILS # (AUTO) 0.1 10^3/uL (0.0-0.7); EOSINOPHILS % (AUTO) 0.9 %; LYMPHOCYTES # (AUTO) 2.7 10^3/uL (1.5-3.5); LYMPHOCYTES % (AUTO) 23.7 %; MEAN CORPUSCULAR HEMOGLOBIN 28.2 pg (27.0-31.0); MEAN CORPUSCULAR HGB CONC 32.3 g/dL (32.0-36.0); MEAN CORPUSCULAR VOLUME 87.4 fL (81.0-99.0); MEAN PLATELET VOLUME 9.4 fL (7.9-10.8); MONOCYTES # (AUTO) 0.8 10^3/uL (0.0-1.0); MONOCYTES % (AUTO) 6.9 %; NEUTROPHILS # (AUTO) 7.9 10^3/uL (1.5-6.6); NEUTROPHILS % (AUTO) 67.8 %; PLT - PLATELET COUNT 235 10^3/uL (130-450); RED CELL DISTRIBUTION WIDTH 14.7 % (12.0-15.0); WHITE BLOOD COUNT 11.6 x10^3/uL (4.8-10.8)
[2019-08-09 06:05] LABS: CREATININE 0.5 mg/dL (0.4-1.0)
[2019-08-09] MEDS ORDERED: LACTATED RINGERS 1,000 ML IV SCH (09:00)
[2019-08-09] MEDS: POTASSIUM CHLOR 10 MEQ/100 ML 10 MEQ/100 ML BAG IV SCH ×3 (10:14→16:08)
--- NOTE | 2019-08-09 11:24 | PHARMACY PROGRESS NOTE ---
- Best Possible Medication History Admit Date and Time: 08/08/19 2141 Processed by: Pharmacy Secondary Source(s): Physician records, Pharmacy records, Previous admit records As the person ultimately responsible for medication therapy, providers are able to order a medication from an existing home medication list in [facility] via the "Reconcile Routine" prior to Confirmation of that medication by integrated logistics support manager. Such practice is discouraged except when the physician, in their clinical judgment, deems that a medical need exists for a medication without regard to previous use.
--- NOTE | 2019-08-09 13:26 | PROVIDER PROGRESS NOTE ---
Assessment/Plan - Problem List (1) Cyclic vomiting syndrome Assessment/Plan: Patient still cannot tolerate full liquid diet, Still complaining nausea and vomiting, She denies abdominal pain. pt had hx of cyclic vomiting syndrome flare on every 4-5 months. patient report she had a CAT scan of the abdomen and endoscopy study in [facility], which were unremarkable. Patient was discharged from the a few days ago. 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 (2) Hypokalemia Conclusion/Plan: Potassium is 3.4, continue replacement, continue laboratory monitoring (3) Bipolar 1 disorder Conclusion/Plan: stable, continue Abilify (4) Depression Conclusion/Plan: stable, continue Prozac - Current Meds Current Meds: Current Medications Generic Name Dose Route Start Last Admin Trade Name Freq PRN Reason Stop Dose Admin Lactated Ringer's 1,000 mls @ 100 mls/hr 08/09/19 09:00 08/09/19 10:14 Lr IV 100 mls/hr .Q10H NORAH Administration Lorazepam 0.5 mg 08/09/19 00:49 08/09/19 08:59 Ativan Inj (Vial) IVP 0.5 mg Q12H PRN Administration Anxiety Ondansetron HCl 4 mg 08/08/19 21:49 08/09/19 12:53 Zofran Inj IVP 4 mg Q6HR PRN Administration Nausea / Vomiting Prochlorperazine Edisylate 10 mg 08/09/19 00:49 08/09/19 12:53 Compazine Inj IVP 10 mg Q6HR PRN Administration Nausea / Vomiting Sodium Chloride 10 ml 08/08/19 21:49 08/09/19 12:53 Normal Saline Flush 0.9% IVP 10 ml PRN PRN Administration NEEDED PER PROVIDER ORDERS Sodium Chloride 10 ml 08/09/19 01:00 08/09/19 08:59 Normal Saline Flush 0.9% IVP 10 ml 0100,0900,1700 NORAH Administration - Lab Result Fish Bone Diagrams: 08/09/19 05:45 08/09/19 05:45 - Additional Planning My Orders: My Active Orders 08/09/19 DRUG SCREEN MEDICAL (MUDS) [URIN] Urgent 08/09/19 09:00 Lactated Ringers [Lr] 1,000 ml IV 100 mls/hr 08/09/19 Dinner Clear Liquid Diet [DIET] Subjective - Subjective Patient Reports: Nausea Nursing Reports: Vomitting Objective Vital Signs: Vital Signs - 24 hr 08/08/19 08/08/19 08/08/19 16:55 21:15 23:25 Temperature 36.7 C 37.1 C Heart Rate 73 83 Heart Rate [ 63 Monitoring electrodes] Respiratory 18 20 14 Rate Blood Pressure 132/98 H 143/92 H Blood Pressure 143/79 H [Right Brachial artery] O2 Saturation 100 99 98 08/09/19 08/09/19 08/09/19 03:36 09:00 09:11 Temperature 37.0 C 37.0 C 37 C Heart Rate 74 Heart Rate [ 74 73 Monitoring electrodes] Respiratory 17 18 17 Rate Blood Pressure Blood Pressure 132/81 H 128/75 [Right Brachial artery] O2 Saturation 97 94 97 08/09/19 11:00 Temperature 37.4 C Heart Rate Heart Rate [ 69 Monitoring electrodes] Respiratory 18 Rate Blood Pressure Blood Pressure 109/59 L [Right Brachial artery] O2 Saturation 97 Oxygen O2 Source Room air I&O (Last 24 Hrs): Intake and Output Totals x24h 08/07/19 08/08/19 08/09/19 23:59 23:59 23:59 Intake Total 2000 2737.5 Output Total 700 1900 Balance 1300 837.5 General: Alert, Oriented x3, No acute distress HEENT: Atraumatic Neck: Supple Lymphatic: no adenopathy Neuro: Alert, Non Focal, Oriented Times 3 Cardiovascular: Regular rate, Normal S1, Normal S2 Respiratory: Chest non-tender, No respiratory distress, Breath sounds nml Abdomen: Normal bowel sounds, Soft, No tenderness Extremities: Normal pulses - Results Results: Laboratory Results WBC 11.6 x10^3/uL (4.8-10.8) H 08/09/19 05:45 RBC 3.90 10^6/uL (4.20-5.40) L 08/09/19 05:45 Hgb 11.0 g/dL (12.0-16.0) L 08/09/19 05:45 Hct 34.1 % (37.0-47.0) L 08/09/19 05:45 MCV 87.4 fL (81.0-99.0) 08/09/19 05:45 MCH 28.2 pg (27.0-31.0) 08/09/19 05:45 MCHC 32.3 g/dL (32.0-36.0) 08/09/19 05:45 RDW 14.7 % (12.0-15.0) 08/09/19 05:45 Plt Count 235 10^3/uL (130-450) 08/09/19 05:45 MPV 9.4 fL (7.9-10.8) 08/09/19 05:45 Neut # (Auto) 7.9 10^3/uL (1.5-6.6) H 08/09/19 05:45 Lymph # (Auto) 2.7 10^3/uL (1.5-3.5) 08/09/19 05:45 [place] # (Auto) 0.8 10^3/uL (0.0-1.0) 08/09/19 05:45 Eos # (Auto) 0.1 10^3/uL (0.0-0.7) 08/09/19 05:45 Baso # (Auto) 0.0 10^3/uL (0.0-0.1) 08/09/19 05:45 Absolute Nucleated RBC 0.00 x10^3/uL 08/09/19 05:45 Nucleated RBC % 0.0 /100WBC 08/09/19 05:45 Sodium 136 mmol/L (135-145) 08/09/19 05:45 Potassium 3.4 mmol/L (3.5-5.0) L 08/09/19 05:45 Chloride 104 mmol/L (101-111) 08/09/19 05:45 Carbon Dioxide 22 mmol/L (21-32) 08/09/19 05:45 Anion Gap 10.0 (6-13) 08/09/19 05:45 BUN 10 mg/dL (6-20) 08/09/19 05:45 Creatinine 0.5 mg/dL (0.4-1.0) 08/09/19 05:45 Estimated GFR (MDRD) 141 (>89) 08/09/19 05:45 Glucose 88 mg/dL (70-100) 08/09/19 05:45 Calcium 8.0 mg/dL (8.5-10.3) L 08/09/19 05:45 Phosphorus 3.1 mg/dL (2.5-4.6) 08/08/19 17:28 Magnesium 2.1 mg/dL (1.7-2.8) 08/08/19 17:28 Total Bilirubin 1.1 mg/dL (0.2-1.0) H 08/08/19 17:28 AST 19 IU/L (10-42) 08/08/19 17:28 ALT 34 IU/L (10-60) 08/08/19 17:28 Alkaline Phosphatase 55 IU/L (42-121) 08/08/19 17:28 Total Protein 8.1 g/dL (6.7-8.2) 08/08/19 17:28 Albumin 4.5 g/dL (3.2-5.5) 08/08/19 17:28 Globulin 3.6 g/dL (2.1-4.2) 08/08/19 17:28 Albumin/Globulin Ratio 1.3 (1.0-2.2) 08/08/19 17:28 Lipase 27 U/L (22-51) 08/08/19 17:28 Urine Color DARK YELLOW 08/08/19 17:12 Urine Clarity HAZY (CLEAR) 08/08/19 17:12 Urine pH 7.0 PH (5.0-7.5) 08/08/19 17:12 Ur Specific [place] 1.020 (1.002-1.030) 08/08/19 17:12 Urine Protein 30 mg/dL (NEGATIVE) H 08/08/19 17:12 Urine Glucose (UA) NEGATIVE mg/dL (NEGATIVE) 08/08/19 17:12 Urine Ketones >=80 mg/dL (NEGATIVE) H 08/08/19 17:12 Urine Occult Blood MODERATE (NEGATIVE) H 08/08/19 17:12 Urine Nitrite NEGATIVE (NEGATIVE) 08/08/19 17:12 Urine Bilirubin NEGATIVE (NEGATIVE) 08/08/19 17:12 Urine Urobilinogen 4 E.U./dL (NORMAL) H 08/08/19 17:12 Ur Leukocyte Esterase NEGATIVE (NEGATIVE) 08/08/19 17:12 Urine RBC 6-10 /HPF (0-5) H 08/08/19 17:12 Urine WBC 0-3 /HPF (0-5) 08/08/19 17:12 Ur Squamous Epith Cells FEW Squamous (<= Few) 08/08/19 17:12 Urine Bacteria None Seen /HPF (None Seen) 08/08/19 17:12 Urine Mucus Moderate Strands 08/08/19 17:12 Ur Microscopic Review INDICATED 08/08/19 17:12 Urine Culture Comments NOT INDICATED 08/08/19 17:12 Urine HCG, Qual NEGATIVE 08/08/19 17:12 Sepsis Event Note (H) - Evaluation Current Stage of Sepsis: Ruled out ABX Reporting Has patient been on IV antibiotics over the past 48 hours?: No Current Medications - Current Medications Current Medications: Active Medications Lactated Ringer's (Lr) 1,000 mls @ 100 mls/hr IV .Q10H NORAH Last Admin: 08/09/19 10:14 Dose: 100 mls/hr Lorazepam (Ativan Inj (Vial)) 0.5 mg IVP Q12H PRN PRN Reason: Anxiety Last Admin: 08/09/19 08:59 Dose: 0.5 mg Ondansetron HCl (Zofran Inj) 4 mg IVP Q6HR PRN PRN Reason: Nausea / Vomiting Last Admin: 08/09/19 12:53 Dose: 4 mg Prochlorperazine Edisylate (Compazine Inj) 10 mg IVP Q6HR PRN PRN Reason: Nausea / Vomiting Last Admin: 08/09/19 12:53 Dose: 10 mg Promethazine HCl (Phenergan Inj) 25 mg IV Q6HR PRN PRN Reason: Nausea / Vomiting Sodium Chloride (Normal Saline Flush 0.9%) 10 ml IVP PRN PRN PRN Reason: NEEDED PER PROVIDER ORDERS Last Admin: 08/09/19 12:53 Dose: 10 ml Sodium Chloride (Normal Saline Flush 0.9%) 10 ml IVP 0100,0900,1700 [facility] Last Admin: 08/09/19 08:59 Dose: 10 ml FLUoxetine [PROzac] 40 mg PO DAILY 01/25/18 ARIPiprazole [Aripiprazole] 10 mg PO DAILY 08/05/19 LORazepam [Lorazepam] 0.5 mg PO DAILY PRN 08/05/19 Ondansetron [Ondansetron Odt] 4 mg PO Q6H PRN 08/05/19 Potassium Citrate/Citric Acid [Potassium Cit-Citric Acid Soln] 15 ml PO BID 08/05/19 Prochlorperazine Maleate 10 mg PO TID PRN 08/05/19 Promethazine Supp [Phenergan Supp] 25 mg RC Q6H PRN 08/05/19 Scopolamine 1 patch TOP Q3D PRN 08/05/19 Cholecalciferol [Vitamin D3] 5,000 unit ORAL DAILY 08/08/19
[2019-08-09] MEDS ORDERED: POTASSIUM CHLOR 10 MEQ/100 ML 10 MEQ/100 ML BAG IV ONE (16:09)
--- NOTE | 2019-08-09 16:21 | Discharge Plan ---
Discharge Plan Problem Reviewed?: Yes Disposition: Home, Self Care Condition: Stable Diet: Regular Activity Restrictions: Activity as Tolerated Shower Restrictions: No (fall precaution) Instruction Topics: Cyclic Vomiting Syndrome [facility] Concerns: cyclic vomiting Plan of Treatment: you state you are ready to d/c to home, no more nausea or vomiting. you may resume your home meds, should your symptoms return, please present ER. Care Goals: stabilization of your medical problem Assessment: discussed the care plan with you, you understood, you want to go home today. 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 Should your symptoms return, you may present ER. No Smoking: If you smoke, Please STOP! Call for help. Follow-up with: PAUL PORTER DO [Primary Care Provider] -
[2019-08-09 16:24] VITALS: BP 114/80
--- NOTE | 2019-08-09 16:29 | DISCHARGE SUMMARY ---
Discharge Summary Admit Date: 08/08/19 Discharge Date: 08/09/19 Discharging Provider: Arnie Ham Primary Care Provider: Ashley Marsh Condition at Discharge: Stable Discharge Disposition: 01 Home, Self Care Discharge Facility Name: home - DIAGNOSES Admission Diagnoses: (1) Cyclic vomiting syndrome (2) Hypokalemia (3) Bipolar 1 disorder (4) Depression Discharge Diagnoses with Status of Each Condition: (1) Cyclic vomiting syndrome resolved. Patient tolerated the regular diet, no nausea no vomiting, patient wanted to be discharged today, Continue home meds (2) Hypokalemia Potassium is 3.4, replaced. Patient has history hypokalemia, continue home potassium (3) Bipolar 1 disorder Stable, Continue home meds (4) Depression Stable, Continue home meds - [facility] History of Present Illness: refer from Dr. Neil's HPI on 08/08/2019 Patient is a 34-year-old female who presented to the ED with complaint of intractable nausea and vomiting. She has vomited at least 12 times in the past 24 hours. She last vomited about 5 minutes after presentation to the medical floor. She has history of cyclical vomiting syndrome and was last admitted to the hospital on August 08, 2019 with the same complaint. She reports quitting the use of marijuana about 10 days ago. She has been seen by GI at the [facility] and has undergone multiple endoscopies with no significant findings. In the ED today she was also found to have a potassium of 2.6. She denies chest pain, dyspnea or fever. She reports abdominal soreness from constant vomiting. She is being admitted for further treatment of her symptoms - HOSPITAL COURSE Hospital Course: Patient was admitted for cyclic vomiting syndrome, patient was discharged for the same problem a few days ago. patient went to [facility] for the same problem, patient has multiple studies with endoscopy and a CAT scan of the abdomen which all show unremarkable. pt followed up with her GI. patient denies she take any more marijuana now. after bowel rest, given intravenous IV fluids, patient symptoms nausea and vomiting are resolved, patient had regular diet without nausea vomiting, patient wanted to be discharged today. - ALLERGIES Allergies/Adverse Reactions: Allergies Allergy/AdvReac Type Severity Reaction Status Date / Time metoclopramide [From Reglan] Allergy Rash Verified 08/05/19 11:43 - MEDICATIONS Home Medications: Ambulatory Orders Medication Instructions Recorded Confirmed FLUoxetine [PROzac] 40 mg PO DAILY 01/25/18 08/09/19 ARIPiprazole [Aripiprazole] 10 mg PO DAILY 08/05/19 08/09/19 LORazepam [Lorazepam] 0.5 mg PO DAILY PRN 08/05/19 08/09/19 Ondansetron [Ondansetron Odt] 4 mg PO Q6H PRN 08/05/19 08/09/19 Potassium Citrate/Citric Acid 15 ml PO BID 08/05/19 08/09/19 [Potassium Cit-Citric Acid Soln] Prochlorperazine Maleate 10 mg PO TID PRN 08/05/19 08/09/19 Promethazine Supp [Phenergan Supp] 25 mg RC Q6H PRN 08/05/19 08/09/19 Scopolamine 1 patch TOP Q3D PRN 08/05/19 08/09/19 Cholecalciferol [Vitamin D3] 5,000 unit ORAL DAILY 08/08/19 08/08/19 - PHYSICAL EXAM AT DISCHARGE General Appearance: positive: No acute distress, Alert. negative: Lethargic Eyes Bilateral: positive: Normal inspection, PERRL, No lid inflammation ENT: positive: ENT inspection nml, Pharynx nml, No signs of dehydration. negative: Purulent nasal drainage Neck: positive: Nml inspection, Thyroid nml, No JVD, Trachea midline. negative: Thyromegaly, Stiff neck, Tracheal deviation Respiratory: positive: Chest non-tender, No respiratory distress, Breath sounds nml. negative: Wheezes, Rales, Rhonchi Cardiovascular: positive: Regular rate & rhythm, No murmur, No gallop. negative: Irregularly irregular, Tachycardia, Bradycardia, JVD present, Systolic murmur, Diastolic murmur Peripheral Pulses: positive: 2+ Abdomen: positive: Non-tender, No organomegaly, Nml bowel sounds, No distention. negative: Tenderness, Guarding, Rebound Back: positive: Nml inspection. negative: CVA tenderness (R), CVA tenderness (L) Skin: positive: Color nml, No rash, Warm, Dry. negative: Cyanosis, Diaphoresis, Pallor Extremities: positive: Non-tender, Full ROM, Nml appearance. negative: Calf tenderness, Manolo's sign/cords Neurologic/Psychiatric: positive: Oriented x3, Motor nml, Sensation nml, Mood/affect nml. negative: Weakness, Sensory loss, Facial droop, Slurred/abnml speech, Depressed mood/affect - LABS Result Diagrams: 08/09/19 05:45 08/09/19 05:45 - SEPSIS Current Stage of Sepsis: Ruled out - FOLLOW UP Follow Up: you state you are ready to d/c to home, no more nausea or vomiting. you may resume your home meds, should your symptoms return, please present ER. You may followup with your PCP in one to two weeks, followup with your travel guide as out-pt. Should your symptoms return, you may present ER. - TIME SPENT Time Spent in Discharge (Minutes): 30
== END 2019-08-09 17:27 | disposition home or self-care (01) ==
LOC: ED 16:48 → MS3 21:49
PROVIDERS: ADMIT Internal Medicine; ATTEND Nurse Practitioner Gerontology
DX: R11.15 Cyclical vomiting syndrome unrelated to migraine (principal); E87.6 Hypokalemia; F31.9 Bipolar disorder, unspecified
CPT/HCPCS: 36415; 80048; 80053; 81001; 81025; 83690; 83735; 84100; 85025; 96361; 96365; 96366; 96372; 96375; 96376; 99284; 99285; G0378; J1200; J2060; J7120; 81003; 87086

== ENCOUNTER 2020-01-18 19:20 | Outpatient (CLI) | payer MEDICAID ==
[2020-01-18 21:01] LABS: ALBUMIN 4.3 g/dL (3.2-5.5); ALBUMIN/GLOBULIN RATIO 1.2 (1.0-2.2); BILIRUBIN,TOTAL 0.4 mg/dL (0.2-1.0); CALCIUM 9.8 mg/dL (8.5-10.3); CREATININE 0.6 mg/dL (0.4-1.0); MAGNESIUM 2.1 mg/dL (1.7-2.8); TOTAL PROTEIN 7.9 g/dL (6.7-8.2)
[2020-01-18 21:26] LABS: FOLATE 10.95 ng/mL (5.90 - >24.8)
== END 2020-01-18 19:21 | disposition home or self-care (01) ==
LOC: LAB 19:20
PROVIDERS: ATTEND Family Medicine
DX: R20.0 Anesthesia of skin (principal); R20.2 Paresthesia of skin
CPT/HCPCS: 80053; 82607; 82746; 83735

== ENCOUNTER 2020-09-06 08:02 | Outpatient (CLI) | payer MEDICAID ==
[2020-09-06 08:39] LABS: BASOPHILS % (AUTO) 0.5 %; EOSINOPHILS # (AUTO) 0.3 10^3/uL (0.0-0.7); HCT - HEMATOCRIT 40.4 % (37.0-47.0); HGB - HEMOGLOBIN 12.8 g/dL (12.0-16.0); LYMPHOCYTES # (AUTO) 2.4 10^3/uL (1.5-3.5); LYMPHOCYTES % (AUTO) 27.7 %; MEAN CORPUSCULAR HEMOGLOBIN 29.2 pg (27.0-31.0); MEAN CORPUSCULAR HGB CONC 31.7 g/dL (32.0-36.0); MEAN PLATELET VOLUME 9.7 fL (7.9-10.8); MONOCYTES # (AUTO) 0.4 10^3/uL (0.0-1.0); MONOCYTES % (AUTO) 5.1 %; NEUTROPHILS # (AUTO) 5.4 10^3/uL (1.5-6.6); NEUTROPHILS % (AUTO) 63.3 %; PLT - PLATELET COUNT 299 10^3/uL (130-450); RED BLOOD COUNT 4.39 10^6/uL (4.20-5.40); RED CELL DISTRIBUTION WIDTH 13.7 % (12.0-15.0); WHITE BLOOD COUNT 8.6 x10^3/uL (4.8-10.8)
[2020-09-06 08:48] LABS: ALBUMIN 4.9 g/dL (3.2-5.5); ALBUMIN/GLOBULIN RATIO 1.3 (1.0-2.2); ALKALINE PHOSPHATASE 54 IU/L (42-121); ALT ALANINE AMINOTRANSFERASE 17 IU/L (10-60); AST ASPARTATE AMINOTRANSFERASE 17 IU/L (10-42); BILIRUBIN,TOTAL 0.5 mg/dL (0.2-1.0); BUN - BLOOD UREA NITROGEN 12 mg/dL (6-20); CALCIUM 9.7 mg/dL (8.5-10.3); CARBON DIOXIDE - CO2 24 mmol/L (21-32); CHLORIDE 104 mmol/L (101-111); CHOLESTEROL 307 mg/dL; CREATININE 0.7 mg/dL (0.4-1.0); GFR - MDRD 95 (>89); GLUCOSE 99 mg/dL (70-100); HDL CHOLESTEROL 51 mg/dL; LDL CHOLESTEROL,CALCULATED 228 mg/dL; LDL/HDL RATIO 4.5 (<4.4); POTASSIUM 4.5 mmol/L (3.5-5.0); SODIUM 138 mmol/L (135-145); TOTAL PROTEIN 8.6 g/dL (6.7-8.2); TRIGLYCERIDES 140 mg/dL; VLDL CHOLESTEROL 28 mg/dL
[2020-09-06 08:59] LABS: THYROID STIMULATING HORMONE 1.23 uIU/mL (0.34-5.60)
== END 2020-09-06 08:03 | disposition home or self-care (01) ==
LOC: LAB 08:02
PROVIDERS: ATTEND Family Medicine
DX: Z00.00 Encounter for general adult medical examination without abnormal findings (principal)
CPT/HCPCS: 36415; 80053; 80061; 83721; 84443; 85025

== ENCOUNTER 2022-04-25 13:28 | Emergency (ER) | payer MEDICAID ==
[2022-04-25 13:38] VITALS: BP 126/84
--- NOTE | 2022-04-25 14:25 | ED Physician Documentation ---
PD HPI SKIN - Stated complaint Stated Complaint: LT BREAST PX - Chief complaint Chief Complaint: General - History obtained from History obtained from: Patient - History of Present Illness Timing - onset: How many days ago (3) Timing - duration: Days (3) Timing - details: Gradual onset, Still present Location: Other (left breast upper medial aspect.) Quality / character: Painful, Draining (She had noticed some greenish discharge from the nipple the first couple of days and none for the last day but increased pain. The pain is local to a section of the breast.). No: Vesicular Associated symptoms: Other (no rash). No: Fever, Myalgias Contributing factors: Other (no injury to breast, not .). 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 : None HEENT: None Psych: Depression, Bipolar disorder Musculoskeletal: None Derm: None - Past Surgical History Past Surgical History: Yes /SUSTAINABILITY MANAGER: Other - Present Medications Home Medications: Ambulatory Orders Medication Instructions Recorded Confirmed FLUoxetine [PROzac] 80 mg PO DAILY 01/25/18 10/02/19 ARIPiprazole [Aripiprazole] 10 mg PO DAILY 08/05/19 10/02/19 Cholecalciferol [Vitamin D3] 5,000 unit ORAL DAILY 08/08/19 10/02/19 Potassium Bicarbonate 25 meq PO BID 10/02/19 10/02/19 [K-Effervescent] Amox/Clav 875/125 [Augmentin] 1 each PO Q12H #14 tablet 04/25/22 Ibuprofen [Motrin] 600 mg PO TID PRN #25 tab 04/25/22 Oxycodone HCl/Acetaminophen 1 each PO Q6H PRN #15 tablet 04/25/22 [Percocet 5-325 mg Tablet] - Allergies Allergies/Adverse Reactions: Allergies Allergy/AdvReac Type Severity Reaction Status Date / Time adhesive Allergy Rash Verified 04/25/22 13:36 metoclopramide [From Reglan] Allergy Rash Verified 04/25/22 13:36 ondansetron [From Zofran] AdvReac Unknown Verified 04/25/22 13:36 - Social History Does the pt smoke?: No Smoking Status: Never smoker Does the pt drink ETOH?: No Does the pt have substance abuse?: Yes - Immunizations Immunizations are current?: Yes - POLST Patient has POLST: No POLST Status: Full Code PD ED PE NORMAL - Vitals Vital signs reviewed: Yes - General General: Alert and oriented X 3, Well developed/nourished - Neck Neck: Supple, no meningeal sign, No adenopathy - Derm Derm: Normal color, Warm and dry, No rash, Other (right upper medial breast with marked tenderness at about 10-12 oclock portion. No discharge at nipple right now. very tender around the supraareolar area. no palpable fluid collection nor mass felt. not tender in rest of breast nor in outer pectoral area nor around left neck. ) Results - Vitals Vitals: Vital Signs - 24 hr 04/25/22 13:33 Temperature 36.1 C L Heart Rate 83 Respiratory 16 Rate Blood Pressure 126/84 H O2 Saturation 99 Oxygen O2 Source Room air PD Medical Decision Making - ED course Complexity details: considered differential (Tenderness and pain with some mild swelling along a section of the breast on the upper medial aspect. There is warmth but minimal redness. No skin lesions. She does not have pain in a nerve root distribution but just a section of the breast.), d/w patient ED course: The patient has progressive pain with some warmth of the left breast. No adenopathy. No fevers. She did describe some nipple discharge. No recent injury. The patient does not have superficial skin tenderness in the area is not in a nerve root distribution. I do not feel an obvious mass or lump or any localized fluid collection. There is marked tenderness in that section of the breast. At this point would assume mastitis. I do not feel an obvious abscess. We can treat with antibiotics and anti-inflammatories as well as pain medicine. At this point I do not see an indication for ultrasound or blood test as I do not feel a localized mass or fluid collection. If she is not better or has increasing swelling, consideration would be ultrasound to evaluate. If she does get better with the above medication, I would still suggest she follow-up with her primary care for likely mammogram in the near future to ensure no underlying abnormality that precipitated ductal blockage or developm ent of the mastitis. Departure - Departure Disposition: 01 Home, Self Care Clinical Impression: Mastitis, left, acute Condition: Stable Record reviewed to determine appropriate education?: Yes Instructions: ED Breast Infec Follow-Up: PAUL PORTER DO [Primary Care Provider] - Prescriptions: Amox/Clav 875/125 [Augmentin] 1 each PO Q12H #14 tablet Ibuprofen [Motrin] 600 mg PO TID PRN #25 tab PRN Reason: Pain Oxycodone HCl/Acetaminophen [Percocet 5-325 mg Tablet] 1 each PO Q6H PRN #15 tablet PRN Reason: pain Comments: At this point the diagnosis seems like an infection of the breast tissue called mastitis. It is less common without breast-feeding but still occurs. We will treat it with an antibiotic of Augmentin twice daily for the next 5 to 7 days. Also treat with anti-inflammatories such as ibuprofen 600 mg 3 times a day with food. To that add Tylenol every 4-6 hours if needed or Percocet if needed for worse pain. I sent your prescriptions to [facility] in [place]. Warm compresses to the area to help promote flow through the ducts and drainage out the nipple. Recheck if not improved well over the next 2 to 3 days and return if worsening. In particular be aware of general symptoms such as fever nausea and vomiting or increasing local symptoms such as a developing fluid pocket or mass that may suggest an abscess in need of draining. Otherwise if this does improve well over the next few days then just finish out the antibiotics and medicines. However following up with your primary care to discuss a possible mammogram to ensure there is no underlying lesion that led to ductal or gland blockage etc. I am prescribing a short course of narcotic pain medication for you. These are potentially dangerous and addictive medications that should be used carefully. These medications may constipate you. Take an [id number] stool softener such as docusate twice daily with plenty of water while taking these medications. If you go 24 hours without a bowel movement, take [id number] MiraLAX, per package instructions. Do not drink or drive while taking these medications. If you received narcotic or sedating medications while in the emergency department do not drive for 24 hours. Store this medication in a safe, secure place and out of reach of children. It is a violation of federal law to give or sell this medication to another person or to use in a manner other than prescribed. The ED will not refill narcotic prescriptions, including prescriptions lost or stolen. You can dispose of unwanted medications at the [facility]'s office or at several pharmacies such as [facility]. Discharge Date/Time: 04/25/22 15:20
[2022-04-25] MEDS ORDERED: ACETAMINOPHEN 325 MG TABLET PO STA (14:41)
[2022-04-25] MEDS ORDERED: IBUPROFEN 600 MG TABLET PO STA (14:41)
[2022-04-25] MEDS ORDERED: AMOX/CLAV 875 MG/125 MG TABLET PO STA (14:43)
== END 2022-04-25 15:20 | disposition home or self-care (01) ==
LOC: ED 13:28
DX: N61.0 Mastitis without abscess (principal)
CPT/HCPCS: 99283; 99284; A9270

== ENCOUNTER 2022-07-24 12:00 | Outpatient (CLI) | payer MEDICAID ==
[2022-07-24 13:22] LABS: THYROID STIMULATING HORMONE 1.04 uIU/mL (0.34-5.60)
[2022-07-24 13:26] LABS: FREE T4 (FREE THYROXINE) 0.99 ng/dL (0.58-1.64)
[2022-07-24 13:27] LABS: PROLACTIN 9.54 ng/mL
[2022-07-24 13:49] LABS: FOLLICLE STIMULATING HORMONE 5.97 mIU/mL
[2022-07-24 13:50] LABS: LUTEINIZING HORMONE 8.18 mIU/mL
== END 2022-07-24 12:01 | disposition home or self-care (01) ==
LOC: LAB 12:00
PROVIDERS: ATTEND Family Medicine
DX: N64.52 Nipple discharge (principal); L74.9 Eccrine sweat disorder, unspecified; N92.6 Irregular menstruation, unspecified; R45.86 Emotional lability; Z98.890 Other specified postprocedural states
CPT/HCPCS: 36415; 83001; 83002; 84146; 84305; 84439; 84443